=== PATIENT | male | born 1965 | race Caucasian/White ===

== ENCOUNTER 2016-09-28 06:45 | Emergency (ER) | payer MEDICARE, MEDICAID ==
[~2016-09-28 06:45] MED LIST: LISI20TA PO; OMEP20CA3 PO; TOPR25TA PO; TYLE325T5 PO; ULTR50TA PO
[2016-09-28] MEDS ORDERED: LISINOPRIL 10 MG TAB As Ordered ONE (07:24)
[2016-09-28] MEDS ORDERED: METOPROLOL SUCC *XL* 25MG TAB (TopROL *XL*) As Ordered ONE (07:25)
[2016-09-28] MEDS ORDERED: MORPHINE 4 MG/ML 1ML SYRINGE As Ordered ONE (07:25)
--- NOTE | 2016-09-28 07:59 | ECGEPIP ---
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
[2016-09-28 08:21] LABS: BASO % 0.2 % (0.0-1.0); EOS # 0.1 K/mm3 (0.0-0.50); EOS % 0.4 % (0.0-3.0); LARGE UNSTAINED CELL # 0.1 K/mm3 (0.0-0.4); LARGE UNSTAINED CELL % 0.4 % (0.0-4.0); LYMPH # 1.6 K/mm3 (1.5-4.5); LYMPH % 11.5 % (24.0-44.0); MEAN CORPUSCULAR HEMOGLOBIN 31.6 pg (27.0-33.0); MEAN CORPUSCULAR HGB CONC 33.7 g/dl (32.0-36.5); MEAN CORPUSCULAR VOLUME 93.6 fl (80.0-96.0); MONO # 0.6 K/mm3 (0.0-0.8); MONO % 4.3 % (0.0-5.0); NEUTROPHILS # 11.6 K/mm3 (1.8-7.7); NEUTROPHILS % 83.3 % (36.0-66.0); PLATELET COUNT, AUTOMATED 204 k/mm3 (150-450); RED CELL DISTRIBUTION WIDTH 12.9 % (11.5-14.5); WHITE BLOOD COUNT 13.9 K/mm3 (4.0-10.0)
[2016-09-28] MEDS ORDERED: ISOVUE-370 76% 100ML VIAL (Q9967) As Ordered ONE (08:34)
[2016-09-28 08:51] LABS: ANION GAP 8 MEQ/L (8-16); BLOOD UREA NITROGEN 17 MG/DL (7-18); CALCIUM LEVEL 8.9 MG/DL (8.5-10.1); CARBON DIOXIDE LEVEL 27 MEQ/L (21-32); CHLORIDE LEVEL 108 MEQ/L (98-107); CREATININE FOR GFR 0.71 MG/DL (0.70-1.30); GLOMERULAR FILTRATION RATE > 60.0 (>56); GLUCOSE, FASTING 106 MG/DL (70-105); POTASSIUM SERUM 3.8 MEQ/L (3.5-5.1); SODIUM LEVEL 143 MEQ/L (136-145)
--- NOTE | 2016-09-28 10:16 | REP ---
CT CHEST WITH IV CONTRAST: CT chest is performed following the intravenous administration of 100 mL of Isovue 370. Sagittal and coronal reconstruction images are performed. There are several bilateral subcentimeter nodular opacities in the lungs with 7 nodular opacities in the right upper lobe and three in the left upper lobe. A single subcentimeter nodular density is seen in each lower lobe. The heart is not enlarged. There is no evidence of thoracic aortic aneurysm or dissection or rupture. There is no adenopathy in the chest. There is no pleural or pericardial effusion. There is no pneumothorax. There are nondisplaced fractures in the posterior left 9th and 10th ribs. There is a moderate sized hiatal hernia present. The visualized upper abdominal structures are unremarkable except for a cyst in the upper pole of the left kidney measuring about 4.5 cm in diameter. IMPRESSION: Several bilateral subcentimeter nodular opacities in the lungs. Recommend 3-month followup CT. Nondisplaced fractures left 9th and 10th ribs posteriorly. No pneumothorax, pleural effusion or aortic injury. Signed by Vernon Henao MD 09/28/2016 04:55 P
--- NOTE | 2016-09-28 13:07 | EDDOCDS ---
Nurse's Notes [facility] Name: Ambrocio Dickerson Age: 51 yrs Sex: Male : 1965 Arrival Date: 09/28/2016 Time: 06:45 Bed 17 Private MD: Willem Doll MD Diagnosis: Multiple fractures of ribs, left side-Pulmonary Nodules Presentation: 09/28 06:52 Presenting complaint: Patient states: Fell Wednesday striking his left ribs on the kmg1 counter. Today got up to go to the bathroom and developed spasms. Suicide/Homicide risk assessment- the patient denies having any suicidal and/or homicidal ideations and does not present with any other emotional, behavioral or mental health complaints. Status: Patient is not a service tech/welder or dependent. Transition of care: patient was not received from another setting of care. Care prior to arrival: See EMS report. Medications administered prior to arrival: Morphine 4 mg and Zofran 4 mg IV Saline lock initiated. Care prior to arrival: Glucose check. 109. 06:52 Acuity: TANJA Level 3 [facility] 06:52 Method Of Arrival: Ambulance [facility] 13:06 Adult Sepsis Screening: The patient does not have new or worsening altered mentation. bcj Patient's respiratory rate is less than 22. Systolic blood pressure is greater than 100. Patient has a qSOFA score of 0- Negative Sepsis Screen. Triage Assessment: 07:00 General: Appears uncomfortable, Behavior is appropriate for age, cooperative, pleasant. kmg1 Pain: Location: left mid back Pain currently is 8 out of 10 on a pain scale. At worst was 10 out of 10 on a pain scale. Quality of pain is described as sharp, spasms Is intermittent. HIV screening NA for this visit Offered previously. Neurological: No deficits noted. Cardiovascular: No deficits noted. Respiratory: Airway is patent Respiratory effort is even, unlabored, Respiratory pattern is regular, symmetrical, Reports pain with cough pain with movement pain with respiration. Historical: - Allergies: No known drug Allergies; - Home Meds: 1. aspirin 81 mg Oral chew 1 tab once daily (Last dose: 09/27/2016) 2. atorvastatin 40 mg oral tab 1 tab once daily (Last dose: 09/27/2016) 3. lisinopril 10 mg Oral tab 1 tab once daily (Last dose: 09/27/2016) 4. omeprazole 20 mg Oral cpDR 1 cap once daily (Last dose: 09/27/2016) 5. metoprolol succinate 25 mg Tb24 1 tab once daily (Last dose: 09/27/2016) - PMHx: Hypertension; Hypercholesterolemia; GERD; - PSHx: Appendectomy; Knee surgery- Right; Knee surgery- Left; - Social history: Smoking status: Patient uses tobacco products, heavy tobacco smoker. No barriers to communication noted, The patient speaks fluent [place], Speaks appropriately for age. - Family history: Not pertinent. - : The pt / caregiver states he / she is not on anticoagulants. Home medication list is obtained from pill bottles. - Exposure Risk Screening:: None identified. Screenin:39 Screening information is obtained from the patient. Fall risk: No risks identified. bcj Assistance ADL's: requires no assistance with activities of daily living. Abuse/DV Screen: The patient / caregiver reports he/she is: not in a situation that causes fear, pain or injury. Nutritional screening: No deficits noted. Advance Directives: Currently, there is no health care proxy. home support is adequate. Assessment: 07:39 General: Appears uncomfortable, Behavior is cooperative. Pain: Location: left flank bcj Pain currently is 8 out of 10 on a pain scale. Neurological: Level of Consciousness is awake, alert. Cardiovascular: Rhythm is sinus rhythm. GI: Abdomen is flat, non- distended. 09:00 General: Appears comfortable, Behavior is cooperative. Pain: Location: left flank and bcj left mid back Pain currently is 6 out of 10 on a pain scale. Pain does not radiate. Derm: Skin is pink, warm & dry. 09:55 General: Appears in no apparent distress, comfortable, Behavior is cooperative. Pain: bcj Location: left flank and left mid back Pain currently is 5 out of 10 on a pain scale. Cardiovascular: Rhythm is sinus rhythm. Derm: Skin is pink, warm & dry. 11:30 General: Appears in no apparent distress, comfortable, Behavior is cooperative. Pain: bcj Location: left flank and left mid back. Cardiovascular: Rhythm is sinus rhythm. Derm: Skin is pink, warm & dry. 13:04 General: Appears in no apparent distress, comfortable, Behavior is cooperative. Pain: bcj Location: left mid back Pain currently is 5 out of 10 on a pain scale. Respiratory: Airway is patent Respiratory effort is even, unlabored, Respiratory pattern is regular, Breath sounds are clear bilaterally. Vital Signs: 06:55 BP 177 / 100 (auto/); bcj 06:57 BP 177 / 100; Pulse 75; Resp 20; Temp 98.5(TE); Pulse Ox 99% on R/A; Pain 10/10; nb2 07:09 BP 208 / 106 (auto/); bcj 07:24 BP 179 / 86 (auto/); bcj 07:28 BP 162 / 84 RA Supine (man/lg); nb2 07:39 BP 169 / 102 (auto/); bcj 07:54 BP 157 / 79 (auto/); bcj 08:09 BP 160 / 78 (auto/); bcj 08:24 BP 154 / 87 (auto/); bcj 08:31 Pulse Ox 97% ; bcj 08:39 BP 174 / 87 (auto/); bcj 08:54 BP 157 / 81 (auto/); bcj 08:54 Pulse Ox 98% ; bcj 09:09 BP 149 / 79 (auto/); bcj 09:26 BP 160 / 71 (auto/); bcj 12:23 Pulse 62 MON; Pulse Ox 99% ; srm 13:04 BP 170 / 77; Pulse 86; Resp 18; Temp 98; Pulse Ox 98% on R/A; Pain 5/10; bcj 06:57 RN notified of BP nb2 Vitals: 06:57 Log In Time N/A - ambulance arrival. nb2 07:39 Refer to monitor trend for complete vital signs trends. [facility] ED Course: 06:46 Patient visited by Melani Tan, Day Care Assistant. [facility] 06:46 Willem Doll is Private Physician. [facility] 06:46 Patient moved to 17 [facility] 06:55 Triage Initiated kmg1 06:57 Placed in gown. Bed in low position. Call light in reach. Side rails up X2. Pulse ox nb2 on. NIBP on. 06:58 Patient visited by Darcy Lion. nb2 06:58 Patient visited by Darcy Lion. nb2 07:01 Nikolai Wei MD is Attending Physician. br1 07:16 Patient visited by Nikolai Wei MD. br1 07:21 EKG done. (by ED staff). Reviewed by Nikolai Wei MD. rn1 07:28 Patient visited by Darcy Lion. nb2 07:39 No apparent distress. Resting quietly. awaiting re-evaluation by ER physician. j 07:39 The patient / caregiver is instructed regarding the plan of care and ED course. j 07:39 Maintain field IV. Site clean & dry. Gauge & site: 20ga left inner arm. Labs drawn. (by [facility] ED staff). Sent per order to lab. 07:42 Patient visited by Tevin Lopez RN. bcj 07:43 Basic Metabolic Profile Sent. bcj 07:43 CBC with Diff Sent. bcj 07:43 Cardiac Injury Profile Sent. bcj 07:43 Troponin Sent. bcj 08:11 EKG-ADULT Returned. EDMS 08:18 [facility] Payment Agreement was scanned into [employer] and attached to record. lg 09:02 Patient visited by Tevin Lopez RN. bcj 09:09 No apparent distress. Resting quietly. awaiting re-evaluation by ER physician. bcj 09:09 IV is intact. bcj 09:56 Patient visited by Tevin Lopez RN. bcj 10:33 CT Chest With Contrast Returned. EDMS 11:27 Patient visited by Darcy Lion. nb2 11:30 No apparent distress. Resting quietly. Awaiting disposition. bcj 11:30 IV is intact. bcj 11:31 Patient visited by Tevin Lopez RN. bcj 12:08 Patient visited by Tevin Lopez RN. bcj 12:18 Patient visited by Nikolai Wei MD. br1 12:23 Willem Doll is Referral Physician. br1 12:23 Ciera Doll RPA-C is Referral Physician. br1 13:04 No apparent distress. Resting quietly. Awaiting disposition. bcj 13:04 Discontinued lock intact. No procedures done that require assistance. [facility] Administered Medications: 07:42 Drug: meTOPROLOL 25 mg [metoprolol succinate ER 25 mg tablet,extended release 24 hr (1 [facility] tabs)] Route: PO; 07:43 Drug: morphine 4 mg [morphine 4 mg/mL intravenous cartridge (1 mL)] Route: IVP; Site: [facility] left antecubital; 09:02 Follow up: Response: Pain is decreased [facility] 07:43 Drug: Lisinopril 10 mg [lisinopril 10 mg tablet (1 tabs)] Route: PO; [facility] Output: 10:53 Urine: 900.00ml (Voided); Total: 900.00ml. [facility] RT: 12:31 Incentive Spirometry performed: 5 inspirations. Volume of inspiration: 2000 mls. js11 Patient tolerated well Patient Effort good. Order Results: Lab Order: Basic Metabolic Profile; SPEC'M 09/28/16 07:37 Test: GLUCOSE, FASTING; Value: 106; Range: 70-105; Abnormal: Above high normal; Units: MG/DL; Status: F Test: BLOOD UREA NITROGEN; Value: 17; Range: 7-18; Units: MG/DL; Status: F Test: CREATININE FOR GFR; Value: 0.71; Range: 0.70-1.30; Units: MG/DL; Status: F Test: GLOMERULAR FILTRATION RATE; Value: > 60.0; Range: >56; Status: F Test: SODIUM LEVEL; Value: 143; Range: 136-145; Units: MEQ/L; Status: F Test: POTASSIUM SERUM; Value: 3.8; Range: 3.5-5.1; Units: MEQ/L; Status: F Test: CHLORIDE LEVEL; Value: 108; Range: 98-107; Abnormal: Above high normal; Units: MEQ/L; Status: F Test: CARBON DIOXIDE LEVEL; Value: 27; Range: 21-32; Units: MEQ/L; Status: F Test: ANION GAP; Value: 8; Range: 8-16; Units: MEQ/L; Status: F Test: CALCIUM LEVEL; Value: 8.9; Range: 8.5-10.1; Units: MG/DL; Status: F Test Note: ; Units are mL/min/1.73 m2 Chronic Kidney Disease Staging per NKF: Stage I & II GFR >=60 Normal to Mildly Decreased Stage III GFR 30-59 Moderately Decreased Stage IV GFR 15-29 Severely Decreased Stage V GFR <15 Very Little GFR Left ESRD GFR <15 on ROTATIONAL MOULDING OPERATOR Lab Order: CBC with Diff; SPEC'M 09/28/16 07:37 Test: WHITE BLOOD COUNT; Value: 13.9; Range: 4.0-10.0; Abnormal: Above high normal; Units: K/mm3; Status: F Test: RED BLOOD COUNT; Value: 4.48; Range: 4.30-6.10; Units: M/mm3; Status: F Test: HEMOGLOBIN; Value: 14.2; Range: 14.0-18.0; Units: g/dl; Status: F Test: HEMATOCRIT; Value: 42.0; Range: 42.0-52.0; Units: %; Status: F Test: MEAN CORPUSCULAR VOLUME; Value: 93.6; Range: 80.0-96.0; Units: fl; Status: F Test: MEAN CORPUSCULAR HEMOGLOBIN; Value: 31.6; Range: 27.0-33.0; Units: pg; Status: F Test: MEAN CORPUSCULAR HGB CONC; Value: 33.7; Range: 32.0-36.5; Units: g/dl; Status: F Test: RED CELL DISTRIBUTION WIDTH; Value: 12.9; Range: 11.5-14.5; Units: %; Status: F Test: PLATELET COUNT, AUTOMATED; Value: 204; Range: 150-450; Units: k/mm3; Status: F Test: NEUTROPHILS %; Value: 83.3; Range: 36.0-66.0; Abnormal: Above high normal; Units: %; Status: F Test: LYMPH %; Value: 11.5; Range: 24.0-44.0; Abnormal: Below low normal; Units: %; Status: F Test: MONO %; Value: 4.3; Range: 0.0-5.0; Units: %; Status: F Test: EOS %; Value: 0.4; Range: 0.0-3.0; Units: %; Status: F Test: BASO %; Value: 0.2; Range: 0.0-1.0; Units: %; Status: F Test: LARGE UNSTAINED CELL %; Value: 0.4; Range: 0.0-4.0; Units: %; Status: F Test: NEUTROPHILS #; Value: 11.6; Range: 1.8-7.7; Abnormal: Above high normal; Units: K/mm3; Status: F Test: LYMPH #; Value: 1.6; Range: 1.5-4.5; Units: K/mm3; Status: F Test: MONO #; Value: 0.6; Range: 0.0-0.8; Units: K/mm3; Status: F Test: EOS #; Value: 0.1; Range: 0.0-0.50; Units: K/mm3; Status: F Test: BASO #; Value: 0.0; Range: 0.0-0.2; Units: K/mm3; Status: F Test: LARGE UNSTAINED CELL #; Value: 0.1; Range: 0.0-0.4; Units: K/mm3; Status: F Lab Order: Cardiac Injury Profile; SPEC'M 09/28/16 07:37 Test: CPK CREATINE PHOSPHOKINASE; Value: 67; Range: 39-308; Units: U/L; Status: F Test: CK-MB VALUE MASS; Value: 1.0; Range: 0.0-3.6; Units: NG/ML; Status: F Test: MB/CK RELATIVE INDEX; Value: 1.49; Range: < OR =4; Status: F Test Note: ; DIAGNOSIS CRITERIA MMB ng/ml Relative Index (RI) NON-AMI < or = 5 N/A VUONG ZONE > 5 < or = 4 AMI > 5 > 4 Lab Order: Troponin; SPEC'M 09/28/16 07:37 Test: TROPONIN I; Value: < 0.02; Range: < 0.10; Units: NG/ML; Status: F Test Note: ; Troponin I Reference Interval for [employer] LOCI: 99th Percentile= 0.00-0.045 ng/ml Risk Stratification: <= 0.10 ng/ml Decreased Risk for Adverse Clinical Events. 0.10-1.50 ng/ml Increased Risk for Adverse Clinical Events. Evaluation of additional criterion and/or repeat testing in 2-6 hours is suggested to rule out myocardial damage. >= 1.50 ng/ml Indicative of Myocardial Injury. 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 Sagittal and coronal reconstruction images are performed.; ; There are several bilateral subcentimeter nodular opacities in the lungs with 7; nodular opacities in the right upper lobe and three in the left upper lobe. A; single subcentimeter nodular density is seen in each lower lobe. The heart is not; enlarged. There is no evidence of thoracic aortic aneurysm or dissection or; rupture. There is no adenopathy in the chest. There is no pleural or; pericardial effusion. There is no pneumothorax. There are nondisplaced fractures; in the posterior left 9th and 10th ribs. There is a moderate sized hiatal hernia; present. The visualized upper abdominal structures are unremarkable except for a; cyst in the upper pole of the left kidney measuring about 4.5 cm in diameter.; ; IMPRESSION:; Several bilateral subcentimeter nodular opacities in the lungs. Recommend; 3-month followup CT.; ; Nondisplaced fractures left 9th and 10th ribs posteriorly. No pneumothorax,; pleural effusion or aortic injury.; ; ; ; Unreviewed; Outcome: 12:23 Discharge ordered by Provider. br1 13:04 Discharge Assessment: patient administered narcotics - yes. Pt provided with safe j discharge. The following High Risk Discharge criteria are identified: None. Discharged to home ambulatory, with family. Condition: stable. Discharge instructions given to patient, Instructed on discharge instructions, follow up and referral plans. medication usage, Prescriptions given X 1. CT Study completed. Property :Personal belongings accompany Pt. 13:06 Patient left the ED. [facility] Signatures: Dispatcher [facility] Oralia Solorio, RN RN kmTevin Teixeira, RN RN Arina Smith RN RN srm Bob Haprer, Reg Reg lg Nikolai Wei MD MD br1 Marvin Vasquez js11 Melani Tan, Day Care Assistant Unit Jose Ramirez rn1 Darcy Lion nb2 Corrections: (The following items were deleted from the chart) 06:58 06:57 BP 177 / 100; Pulse 75bpm; Resp 20bpm; Pulse Ox 99% RA; Temp 98.5F Temporal; Pain nb2 05/11; nb2 MTDD
--- NOTE | 2016-09-28 13:07 | EDDOCDS ---
Physician Documentation [facility] Name: Ambrocio Dickerson Age: 51 yrs Sex: Male : 1965 Arrival Date: 09/28/2016 Time: 06:45 Bed 17 Private MD: Willem Doll MD Disposition: 09/28/16 12:23 Discharged to Home/Self Care. Impression: Multiple fractures of ribs, left side - Pulmonary Nodules. - Condition is Stable. - Discharge Instructions: Rib Fracture, Pulmonary Nodule. - Prescriptions for Percocet 5- 325 mg Oral Tablet - take 1 tablet by ORAL route every 6 hours As needed MDD: 4 tabs; 20 tablet. - Medication Reconciliation, Local Pharmacy Hours form. - Follow up: Willem Doll; When: 2 - 3 days; Reason: Recheck today's complaints. Follow up: Ciera Doll RPA-C; When: 2 - 3 days; Reason: Recheck today's complaints. - Problem is new. - Symptoms have improved. - Notes: You were seen in the ED for left rib pain after a fall. Bloodwork showed no acute findings. CT scan of the chest showed fractures of the left 9th and 10th ribs, nondisplaced. It also showed nodules in the lungs that will need further evaluation with your primary doctor this week and possible repeat CT scan. Please call your primary provider to discuss this and arrange to be seen this week. Rest. You may take Ibuprofen as needed for pain and may take Percocet as needed for breakthrough pain (no driving or operating machinery while on this medicine). Use the incentive spirometer several times daily to prevent a developing pneumonia. Return to the ED for any worsening or uncontrolled pain, shortness of breath, fever, new pain, or any other concerns. Historical: - Allergies: No known drug Allergies; - Home Meds: 1. aspirin 81 mg Oral chew 1 tab once daily (Last dose: 09/27/2016) 2. atorvastatin 40 mg oral tab 1 tab once daily (Last dose: 09/27/2016) 3. lisinopril 10 mg Oral tab 1 tab once daily (Last dose: 09/27/2016) 4. omeprazole 20 mg Oral cpDR 1 cap once daily (Last dose: 09/27/2016) 5. metoprolol succinate 25 mg Tb24 1 tab once daily (Last dose: 09/27/2016) - PMHx: Hypertension; Hypercholesterolemia; GERD; - PSHx: Appendectomy; Knee surgery- Right; Knee surgery- Left; - Social history: Smoking status: Patient uses tobacco products, heavy tobacco smoker. No barriers to communication noted, The patient speaks fluent [place], Speaks appropriately for age. - Family history: Not pertinent. - : The pt / caregiver states he / she is not on anticoagulants. Home medication list is obtained from pill bottles. - Exposure Risk Screening:: None identified. Vital Signs: 09/28 06:55 BP 177 / 100 (auto/); bcj 06:57 BP 177 / 100; Pulse 75; Resp 20; Temp 98.5(TE); Pulse Ox 99% on R/A; Pain 10/10; nb2 07:09 BP 208 / 106 (auto/); bcj 07:24 BP 179 / 86 (auto/); bcj 07:28 BP 162 / 84 RA Supine (man/lg); nb2 07:39 BP 169 / 102 (auto/); bcj 07:54 BP 157 / 79 (auto/); bcj 08:09 BP 160 / 78 (auto/); bcj 08:24 BP 154 / 87 (auto/); bcj 08:31 Pulse Ox 97% ; bcj 08:39 BP 174 / 87 (auto/); bcj 08:54 BP 157 / 81 (auto/); bcj 08:54 Pulse Ox 98% ; bcj 09:09 BP 149 / 79 (auto/); bcj 09:26 BP 160 / 71 (auto/); bcj 12:23 Pulse 62 MON; Pulse Ox 99% ; srm 13:04 BP 170 / 77; Pulse 86; Resp 18; Temp 98; Pulse Ox 98% on R/A; Pain 5/10; bcj 06:57 RN notified of BP nb2 MDM: 07:05 IV Saline Lock ordered. br1 07:05 Clinical Haematologist/Pulse Ox/q 30 min VS ordered. br1 07:05 Rhythm Strip to chart ordered. br1 07:05 Undress patient appropriately for examination ordered. br1 07:05 Misc. Nursing Order ordered. br1 07:06 Basic Metabolic Profile Ordered. EDMS 07:06 CBC with Diff Ordered. EDMS 07:06 Cardiac Injury Profile Ordered. EDMS 07:06 Troponin Ordered. EDMS 07:07 ECG WITH READING ER PHYS+CARDIAG ordered. EDMS 07:20 morphine 4 mg IVP once ordered. br1 07:21 Lisinopril 10 mg PO once ordered. br1 07:21 meTOPROLOL Extended Release 24 hour Tablet (Succinate) 25 mg PO once ordered. br1 07:23 CT Chest With Contrast Ordered. EDMS 07:55 Financial registration complete. lg 08:18 [facility] Payment Agreement was scanned into [employer] and attached to record. lg 08:39 CBC with Diff Reviewed. br1 08:39 EKG-ADULT Reviewed. br1 09:49 Basic Metabolic Profile Reviewed. br1 09:49 Cardiac Injury Profile Reviewed. br1 09:49 Troponin Reviewed. br1 12:18 Call Respiratory ordered. br1 12:18 -Incentive Spirometer ordered. br1 12:21 Call Respiratory complete. deg Administered Medications: 07:42 Drug: meTOPROLOL 25 mg [metoprolol succinate ER 25 mg tablet,extended release 24 hr (1 bcj tabs)] Route: PO; 07:43 Drug: morphine 4 mg [morphine 4 mg/mL intravenous cartridge (1 mL)] Route: IVP; Site: [facility] left antecubital; 09:02 Follow up: Response: Pain is decreased [facility] 07:43 Drug: Lisinopril 10 mg [lisinopril 10 mg tablet (1 tabs)] Route: PO; [facility] Signatures: Dispatcher [employer] EDNery Bynum, Electric Sealing Machine Operator Unit deg Oralia Solorio RN RN km Tevin Lopez RN RN [facility] Bob Harper, Reg Reg lg Cory Wei MD MD br1 The chart was reviewed and I authenticate all verbal orders and agree with the evaluation and treatment provided.Attachments: 08:18 [facility] Payment Agreement lg MTDD
--- NOTE | 2016-09-30 14:08 | EDDOCDS ---
Physician Documentation [facility] Name: Ambrocio Dickerson Age: 51 yrs Sex: Male : 1965 Arrival Date: 09/28/2016 Time: 06:45 Bed 17 Private MD: Willem Doll MD Disposition: 09/28/16 12:23 Discharged to Home/Self Care. Impression: Multiple fractures of ribs, left side - Pulmonary Nodules. - Condition is Stable. - Discharge Instructions: Rib Fracture, Pulmonary Nodule. - Prescriptions for Percocet 5- 325 mg Oral Tablet - take 1 tablet by ORAL route every 6 hours As needed MDD: 4 tabs; 20 tablet. - Medication Reconciliation, Local Pharmacy Hours form. - Follow up: Willem Doll; When: 2 - 3 days; Reason: Recheck today's complaints. Follow up: Ciera Doll RPA-C; When: 2 - 3 days; Reason: Recheck today's complaints. - Problem is new. - Symptoms have improved. - Notes: You were seen in the ED for left rib pain after a fall. Bloodwork showed no acute findings. CT scan of the chest showed fractures of the left 9th and 10th ribs, nondisplaced. It also showed nodules in the lungs that will need further evaluation with your primary doctor this week and possible repeat CT scan. Please call your primary provider to discuss this and arrange to be seen this week. Rest. You may take Ibuprofen as needed for pain and may take Percocet as needed for breakthrough pain (no driving or operating machinery while on this medicine). Use the incentive spirometer several times daily to prevent a developing pneumonia. Return to the ED for any worsening or uncontrolled pain, shortness of breath, fever, new pain, or any other concerns. Historical: - Allergies: No known drug Allergies; - Home Meds: 1. aspirin 81 mg Oral chew 1 tab once daily (Last dose: 09/27/2016) 2. atorvastatin 40 mg oral tab 1 tab once daily (Last dose: 09/27/2016) 3. lisinopril 10 mg Oral tab 1 tab once daily (Last dose: 09/27/2016) 4. omeprazole 20 mg Oral cpDR 1 cap once daily (Last dose: 09/27/2016) 5. metoprolol succinate 25 mg Tb24 1 tab once daily (Last dose: 09/27/2016) - PMHx: Hypertension; Hypercholesterolemia; GERD; - PSHx: Appendectomy; Knee surgery- Right; Knee surgery- Left; - Social history: Smoking status: Patient uses tobacco products, heavy tobacco smoker. No barriers to communication noted, The patient speaks fluent Bangladeshi, Speaks appropriately for age. - Family history: Not pertinent. - : The pt / caregiver states he / she is not on anticoagulants. Home medication list is obtained from pill bottles. - Exposure Risk Screening:: None identified. Vital Signs: 09/28 06:55 BP 177 / 100 (auto/); bcj 06:57 BP 177 / 100; Pulse 75; Resp 20; Temp 98.5(TE); Pulse Ox 99% on R/A; Pain 10/10; nb2 07:09 BP 208 / 106 (auto/); bcj 07:24 BP 179 / 86 (auto/); bcj 07:28 BP 162 / 84 RA Supine (man/lg); nb2 07:39 BP 169 / 102 (auto/); bcj 07:54 BP 157 / 79 (auto/); bcj 08:09 BP 160 / 78 (auto/); bcj 08:24 BP 154 / 87 (auto/); bcj 08:31 Pulse Ox 97% ; bcj 08:39 BP 174 / 87 (auto/); bcj 08:54 BP 157 / 81 (auto/); bcj 08:54 Pulse Ox 98% ; bcj 09:09 BP 149 / 79 (auto/); bcj 09:26 BP 160 / 71 (auto/); bcj 12:23 Pulse 62 MON; Pulse Ox 99% ; srm 13:04 BP 170 / 77; Pulse 86; Resp 18; Temp 98; Pulse Ox 98% on R/A; Pain 5/10; bcj 06:57 RN notified of BP nb2 MDM: 07:05 IV Saline Lock ordered. br1 07:05 Assistant Attorney General/Pulse Ox/q 30 min VS ordered. br1 07:05 Rhythm Strip to chart ordered. br1 07:05 Undress patient appropriately for examination ordered. br1 07:05 Misc. Nursing Order ordered. br1 07:06 Basic Metabolic Profile Ordered. EDMS 07:06 CBC with Diff Ordered. EDMS 07:06 Cardiac Injury Profile Ordered. EDMS 07:06 Troponin Ordered. EDMS 07:07 ECG WITH READING ER PHYS+CARDIAG ordered. EDMS 07:20 morphine 4 mg IVP once ordered. br1 07:21 Lisinopril 10 mg PO once ordered. br1 07:21 meTOPROLOL Extended Release 24 hour Tablet (Succinate) 25 mg PO once ordered. br1 07:23 CT Chest With Contrast Ordered. EDMS 07:55 Financial registration complete. lg 08:18 [facility] Payment Agreement was scanned into [employer] and attached to record. lg 08:39 CBC with Diff Reviewed. br1 08:39 EKG-ADULT Reviewed. br1 09:49 Basic Metabolic Profile Reviewed. br1 09:49 Cardiac Injury Profile Reviewed. br1 09:49 Troponin Reviewed. br1 12:18 Call Respiratory ordered. br1 12:18 -Incentive Spirometer ordered. br1 12:21 Call Respiratory complete. deg 09/30 07:08 ED course: dr bansal faxed formal report of ct chest for fu mlg. ml Administered Medications: 09/28 07:42 Drug: meTOPROLOL 25 mg [metoprolol succinate ER 25 mg tablet,extended release 24 hr (1 bcj tabs)] Route: PO; 07:43 Drug: morphine 4 mg [morphine 4 mg/mL intravenous cartridge (1 mL)] Route: IVP; Site: [facility] left antecubital; 09:02 Follow up: Response: Pain is decreased [facility] 07:43 Drug: Lisinopril 10 mg [lisinopril 10 mg tablet (1 tabs)] Route: PO; [facility] Signatures: Dispatcher [employer] EDLA Hilary Pantoja MD MD ml Murray, Denise, Automation Test Engineer Unit deg Oralia Solorio, LEIGHA RN kmg1 Tevin Lopez RN RN bcBob Alford, Reg Reg lg Cory Wei MD MD br1 The chart was reviewed and I authenticate all verbal orders and agree with the evaluation and treatment provided.Attachments: 08:18 [facility] Payment Agreement lg Chart Complete MTDD
--- NOTE | 2016-09-30 14:08 | EDDOCDS ---
Nurse's Notes [facility] Name: Ambrocio Dickerson Age: 51 yrs Sex: Male : 1965 Arrival Date: 09/28/2016 Time: 06:45 Bed 17 Private MD: Willem Doll MD Diagnosis: Multiple fractures of ribs, left side-Pulmonary Nodules Presentation: 09/28 06:52 Presenting complaint: Patient states: Fell Wednesday striking his left ribs on the kmg1 counter. Today got up to go to the bathroom and developed spasms. Suicide/Homicide risk assessment- the patient denies having any suicidal and/or homicidal ideations and does not present with any other emotional, behavioral or mental health complaints. Status: Patient is not a service car operator or dependent. Transition of care: patient was not received from another setting of care. Care prior to arrival: See EMS report. Medications administered prior to arrival: Morphine 4 mg and Zofran 4 mg IV Saline lock initiated. Care prior to arrival: Glucose check. 109. 06:52 Acuity: [place] Level 3 [facility] [place] 06:[place] Method Of Arrival: [place] [facility] [place]:06 Adult Sepsis Screening: The patient does not have new or worsening altered mentation. bcj Patient's respiratory rate is less than 22. Systolic blood pressure is greater than 100. Patient has a qSOFA score of 0- Negative Sepsis Screen. Triage Assessment: 07:00 General: Appears uncomfortable, Behavior is appropriate for age, cooperative, pleasant. kmg1 Pain: Location: left mid back Pain currently is 8 out of 10 on a pain scale. At worst was 10 out of 10 on a pain scale. Quality of pain is described as sharp, spasms Is intermittent. HIV screening NA for this visit Offered previously. Neurological: No deficits noted. Cardiovascular: No deficits noted. Respiratory: Airway is patent Respiratory effort is even, unlabored, Respiratory pattern is regular, symmetrical, Reports pain with cough pain with movement pain with respiration. Historical: - Allergies: No known drug Allergies; - Home Meds: 1. aspirin 81 mg Oral chew 1 tab once daily (Last dose: 09/27/2016) 2. atorvastatin 40 mg oral tab 1 tab once daily (Last dose: 09/27/2016) 3. lisinopril 10 mg Oral tab 1 tab once daily (Last dose: 09/27/2016) 4. omeprazole 20 mg Oral cpDR 1 cap once daily (Last dose: 09/27/2016) 5. metoprolol succinate 25 mg Tb24 1 tab once daily (Last dose: 09/27/2016) - PMHx: Hypertension; Hypercholesterolemia; GERD; - PSHx: Appendectomy; Knee surgery- Right; Knee surgery- Left; - Social history: Smoking status: Patient uses tobacco products, heavy tobacco smoker. No barriers to communication noted, The patient speaks fluent Colombian, Speaks appropriately for age. - Family history: Not pertinent. - : The pt / caregiver states he / she is not on anticoagulants. Home medication list is obtained from pill bottles. - Exposure Risk Screening:: None identified. Screenin:39 Screening information is obtained from the patient. Fall risk: No risks identified. bcj Assistance ADL's: requires no assistance with activities of daily living. Abuse/DV Screen: The patient / caregiver reports he/she is: not in a situation that causes fear, pain or injury. Nutritional screening: No deficits noted. Advance Directives: Currently, there is no health care proxy. home support is adequate. Assessment: 07:39 General: Appears uncomfortable, Behavior is cooperative. Pain: Location: left flank bcj Pain currently is 8 out of 10 on a pain scale. Neurological: Level of Consciousness is awake, alert. Cardiovascular: Rhythm is sinus rhythm. GI: Abdomen is flat, non- distended. 09:00 General: Appears comfortable, Behavior is cooperative. Pain: Location: left flank and bcj left mid back Pain currently is 6 out of 10 on a pain scale. Pain does not radiate. Derm: Skin is pink, warm & dry. 09:55 General: Appears in no apparent distress, comfortable, Behavior is cooperative. Pain: bcj Location: left flank and left mid back Pain currently is 5 out of 10 on a pain scale. Cardiovascular: Rhythm is sinus rhythm. Derm: Skin is pink, warm & dry. 11:30 General: Appears in no apparent distress, comfortable, Behavior is cooperative. Pain: bcj Location: left flank and left mid back. Cardiovascular: Rhythm is sinus rhythm. Derm: Skin is pink, warm & dry. 13:04 General: Appears in no apparent distress, comfortable, Behavior is cooperative. Pain: bcj Location: left mid back Pain currently is 5 out of 10 on a pain scale. Respiratory: Airway is patent Respiratory effort is even, unlabored, Respiratory pattern is regular, Breath sounds are clear bilaterally. Vital Signs: 06:55 BP 177 / 100 (auto/); bcj 06:57 BP 177 / 100; Pulse 75; Resp 20; Temp 98.5(TE); Pulse Ox 99% on R/A; Pain 10/10; nb2 07:09 BP 208 / 106 (auto/); bcj 07:24 BP 179 / 86 (auto/); bcj 07:28 BP 162 / 84 RA Supine (man/lg); nb2 07:39 BP 169 / 102 (auto/); bcj 07:54 BP 157 / 79 (auto/); bcj 08:09 BP 160 / 78 (auto/); bcj 08:24 BP 154 / 87 (auto/); bcj 08:31 Pulse Ox 97% ; bcj 08:39 BP 174 / 87 (auto/); bcj 08:54 BP 157 / 81 (auto/); bcj 08:54 Pulse Ox 98% ; bcj 09:09 BP 149 / 79 (auto/); bcj 09:26 BP 160 / 71 (auto/); bcj 12:23 Pulse 62 MON; Pulse Ox 99% ; srm 13:04 BP 170 / 77; Pulse 86; Resp 18; Temp 98; Pulse Ox 98% on R/A; Pain 5/10; bcj 06:57 RN notified of BP nb2 Vitals: 06:57 Log In Time N/A - ambulance arrival. nb2 07:39 Refer to monitor trend for complete vital signs trends. [facility] ED Course: 06:46 Patient visited by Melani Tan, Supervisor Loading. [facility] 06:46 Willem Doll is Private Physician. [facility] 06:46 Patient moved to 17 [facility] 06:55 Triage Initiated kmg1 06:57 Placed in gown. Bed in low position. Call light in reach. Side rails up X2. Pulse ox nb2 on. NIBP on. 06:58 Patient visited by Darcy Lion. nb2 06:58 Patient visited by Darcy Lion. nb2 07:01 Nikolai Wei MD is Attending Physician. br1 07:16 Patient visited by Nikolai Wei MD. br1 07:21 EKG done. (by ED staff). Reviewed by Nikolai Wei MD. rn1 07:28 Patient visited by Darcy Lion. nb2 07:39 No apparent distress. Resting quietly. awaiting re-evaluation by ER physician. j 07:39 The patient / caregiver is instructed regarding the plan of care and ED course. j 07:39 Maintain field IV. Site clean & dry. Gauge & site: 20ga left inner arm. Labs drawn. (by [facility] ED staff). Sent per order to lab. 07:42 Patient visited by Tevin Lopez RN. bcj 07:43 Basic Metabolic Profile Sent. bcj 07:43 CBC with Diff Sent. bcj 07:43 Cardiac Injury Profile Sent. bcj 07:43 Troponin Sent. bcj 08:11 EKG-ADULT Returned. EDMS 08:18 [facility] Payment Agreement was scanned into [employer] and attached to record. lg 09:02 Patient visited by Tevin Lopez RN. bcj 09:09 No apparent distress. Resting quietly. awaiting re-evaluation by ER physician. bcj 09:09 IV is intact. bcj 09:56 Patient visited by Tevin Lopez RN. bcj 10:33 CT Chest With Contrast Returned. EDMS 11:27 Patient visited by Darcy Lion. nb2 11:30 No apparent distress. Resting quietly. Awaiting disposition. bcj 11:30 IV is intact. bcj 11:31 Patient visited by Tevin Lopez RN. bcj 12:08 Patient visited by Tevin Lopez RN. bcj 12:18 Patient visited by Nikolai Wei MD. br1 12:23 Willem Doll is Referral Physician. br1 12:23 Ciera Doll RPA-C is Referral Physician. br1 13:04 No apparent distress. Resting quietly. Awaiting disposition. bcj 13:04 Discontinued lock intact. No procedures done that require assistance. [facility] Administered Medications: 07:42 Drug: meTOPROLOL 25 mg [metoprolol succinate ER 25 mg tablet,extended release 24 hr (1 [facility] tabs)] Route: PO; 07:43 Drug: morphine 4 mg [morphine 4 mg/mL intravenous cartridge (1 mL)] Route: IVP; Site: [facility] left antecubital; 09:02 Follow up: Response: Pain is decreased [facility] 07:43 Drug: Lisinopril 10 mg [lisinopril 10 mg tablet (1 tabs)] Route: PO; [facility] Output: 10:53 Urine: 900.00ml (Voided); Total: 900.00ml. [facility] RT: 12:31 Incentive Spirometry performed: 5 inspirations. Volume of inspiration: 2000 mls. js11 Patient tolerated well Patient Effort good. Order Results: Lab Order: Basic Metabolic Profile; SPEC'M 09/28/16 07:37 Test: GLUCOSE, FASTING; Value: 106; Range: 70-105; Abnormal: Above high normal; Units: MG/DL; Status: F Test: BLOOD UREA NITROGEN; Value: 17; Range: 7-18; Units: MG/DL; Status: F Test: CREATININE FOR GFR; Value: 0.71; Range: 0.70-1.30; Units: MG/DL; Status: F Test: GLOMERULAR FILTRATION RATE; Value: > 60.0; Range: >56; Status: F Test: SODIUM LEVEL; Value: 143; Range: 136-145; Units: MEQ/L; Status: F Test: POTASSIUM SERUM; Value: 3.8; Range: 3.5-5.1; Units: MEQ/L; Status: F Test: CHLORIDE LEVEL; Value: 108; Range: 98-107; Abnormal: Above high normal; Units: MEQ/L; Status: F Test: CARBON DIOXIDE LEVEL; Value: 27; Range: 21-32; Units: MEQ/L; Status: F Test: ANION GAP; Value: 8; Range: 8-16; Units: MEQ/L; Status: F Test: CALCIUM LEVEL; Value: 8.9; Range: 8.5-10.1; Units: MG/DL; Status: F Test Note: ; Units are mL/min/1.73 m2 Chronic Kidney Disease Staging per NKF: Stage I & II GFR >=60 Normal to Mildly Decreased Stage III GFR 30-59 Moderately Decreased Stage IV GFR 15-29 Severely Decreased Stage V GFR <15 Very Little GFR Left ESRD GFR <15 on PRESCHOOL ASSISTANT Lab Order: CBC with Diff; SPEC'M 09/28/16 07:37 Test: WHITE BLOOD COUNT; Value: 13.9; Range: 4.0-10.0; Abnormal: Above high normal; Units: K/mm3; Status: F Test: RED BLOOD COUNT; Value: 4.48; Range: 4.30-6.10; Units: M/mm3; Status: F Test: HEMOGLOBIN; Value: 14.2; Range: 14.0-18.0; Units: g/dl; Status: F Test: HEMATOCRIT; Value: 42.0; Range: 42.0-52.0; Units: %; Status: F Test: MEAN CORPUSCULAR VOLUME; Value: 93.6; Range: 80.0-96.0; Units: fl; Status: F Test: MEAN CORPUSCULAR HEMOGLOBIN; Value: 31.6; Range: 27.0-33.0; Units: pg; Status: F Test: MEAN CORPUSCULAR HGB CONC; Value: 33.7; Range: 32.0-36.5; Units: g/dl; Status: F Test: RED CELL DISTRIBUTION WIDTH; Value: 12.9; Range: 11.5-14.5; Units: %; Status: F Test: PLATELET COUNT, AUTOMATED; Value: 204; Range: 150-450; Units: k/mm3; Status: F Test: NEUTROPHILS %; Value: 83.3; Range: 36.0-66.0; Abnormal: Above high normal; Units: %; Status: F Test: LYMPH %; Value: 11.5; Range: 24.0-44.0; Abnormal: Below low normal; Units: %; Status: F Test: MONO %; Value: 4.3; Range: 0.0-5.0; Units: %; Status: F Test: EOS %; Value: 0.4; Range: 0.0-3.0; Units: %; Status: F Test: BASO %; Value: 0.2; Range: 0.0-1.0; Units: %; Status: F Test: LARGE UNSTAINED CELL %; Value: 0.4; Range: 0.0-4.0; Units: %; Status: F Test: NEUTROPHILS #; Value: 11.6; Range: 1.8-7.7; Abnormal: Above high normal; Units: K/mm3; Status: F Test: LYMPH #; Value: 1.6; Range: 1.5-4.5; Units: K/mm3; Status: F Test: MONO #; Value: 0.6; Range: 0.0-0.8; Units: K/mm3; Status: F Test: EOS #; Value: 0.1; Range: 0.0-0.50; Units: K/mm3; Status: F Test: BASO #; Value: 0.0; Range: 0.0-0.2; Units: K/mm3; Status: F Test: LARGE UNSTAINED CELL #; Value: 0.1; Range: 0.0-0.4; Units: K/mm3; Status: F Lab Order: Cardiac Injury Profile; SPEC'M 09/28/16 07:37 Test: CPK CREATINE PHOSPHOKINASE; Value: 67; Range: 39-308; Units: U/L; Status: F Test: CK-MB VALUE MASS; Value: 1.0; Range: 0.0-3.6; Units: NG/ML; Status: F Test: MB/CK RELATIVE INDEX; Value: 1.49; Range: < OR =4; Status: F Test Note: ; DIAGNOSIS CRITERIA MMB ng/ml Relative Index (RI) NON-AMI < or = 5 N/A HE[place] ZONE > 5 < or = 4 AMI > 5 > 4 Lab Order: Troponin; SPEC'M 09/28/16 07:37 Test: TROPONIN I; Value: < 0.02; Range: < 0.10; Units: NG/ML; Status: F Test Note: ; Troponin I Reference Interval for Red's All natural LOCI: 99th Percentile= 0.00-0.045 ng/ml Risk Stratification: <= 0.10 ng/ml Decreased Risk for Adverse Clinical Events. 0.10-1.50 ng/ml Increased Risk for Adverse Clinical Events. Evaluation of additional criterion and/or repeat testing in 2-6 hours is suggested to rule out myocardial damage. >= 1.50 ng/ml Indicative of Myocardial Injury. 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 Sagittal and coronal reconstruction images are performed.; ; There are several bilateral subcentimeter nodular opacities in the lungs with 7; nodular opacities in the right upper lobe and three in the left upper lobe. A; single subcentimeter nodular density is seen in each lower lobe. The heart is not; enlarged. There is no evidence of thoracic aortic aneurysm or dissection or; rupture. There is no adenopathy in the chest. There is no pleural or; pericardial effusion. There is no pneumothorax. There are nondisplaced fractures; in the posterior left 9th and 10th ribs. There is a moderate sized hiatal hernia; present. The visualized upper abdominal structures are unremarkable except for a; cyst in the upper pole of the left kidney measuring about 4.5 cm in diameter.; ; IMPRESSION:; ; Several bilateral subcentimeter nodular opacities in the lungs. Recommend; 3-month followup CT.; ; Nondisplaced fractures left 9th and 10th ribs posteriorly. No pneumothorax,; pleural effusion or aortic injury.; ; ; Signed by; Vernon Henao MD 09/28/2016 04:55 P; Outcome: 12:23 Discharge ordered by Provider. br1 13:04 Discharge Assessment: patient administered narcotics - yes. Pt provided with safe bcj discharge. The following High Risk Discharge criteria are identified: None. Discharged to home ambulatory, with family. Condition: stable. Discharge instructions given to patient, Instructed on discharge instructions, follow up and referral plans. medication usage, Prescriptions given X 1. CT Study completed. Property :Personal belongings accompany Pt. 13:06 Patient left the ED. bcj Signatures: Dispatcher [employer] EDMS Oralia Solorio RN RN kmg1 Tevin Lopez, LEIGHA RN bcj Arina Silva, RN RN srm Bob Harper, Reg Reg lg Nikolai Wei MD MD br1 Marvin Vasquez js11 Melani Tan, Supervisor Loading Unit car[employer]em Jose Hawkins rn1 Darcy Lion nb2 Corrections: (The following items were deleted from the chart) 06:58 06:57 BP 177 / 100; Pulse 75bpm; Resp 20bpm; Pulse Ox 99% RA; Temp 98.5F Temporal; Pain nb2 05/11; nb2 Chart Complete MTDD
--- NOTE | 2016-09-30 14:08 | EDDOCDS ---
Physician Documentation [facility] Name: Ambrocio Dickerson Age: 51 yrs Sex: Male : 1965 Arrival Date: 09/28/2016 Time: 06:45 Bed 17 Private MD: Willem Doll MD Disposition: 09/28/16 12:23 Discharged to Home/Self Care. Impression: Multiple fractures of ribs, left side - Pulmonary Nodules. - Condition is Stable. - Discharge Instructions: Rib Fracture, Pulmonary Nodule. - Prescriptions for Percocet 5- 325 mg Oral Tablet - take 1 tablet by ORAL route every 6 hours As needed MDD: 4 tabs; 20 tablet. - Medication Reconciliation, Local Pharmacy Hours form. - Follow up: Willem Doll; When: 2 - 3 days; Reason: Recheck today's complaints. Follow up: Ciera Doll RPA-C; When: 2 - 3 days; Reason: Recheck today's complaints. - Problem is new. - Symptoms have improved. - Notes: You were seen in the ED for left rib pain after a fall. Bloodwork showed no acute findings. CT scan of the chest showed fractures of the left 9th and 10th ribs, nondisplaced. It also showed nodules in the lungs that will need further evaluation with your primary doctor this week and possible repeat CT scan. Please call your primary provider to discuss this and arrange to be seen this week. Rest. You may take Ibuprofen as needed for pain and may take Percocet as needed for breakthrough pain (no driving or operating machinery while on this medicine). Use the incentive spirometer several times daily to prevent a developing pneumonia. Return to the ED for any worsening or uncontrolled pain, shortness of breath, fever, new pain, or any other concerns. Historical: - Allergies: No known drug Allergies; - Home Meds: 1. aspirin 81 mg Oral chew 1 tab once daily (Last dose: 09/27/2016) 2. atorvastatin 40 mg oral tab 1 tab once daily (Last dose: 09/27/2016) 3. lisinopril 10 mg Oral tab 1 tab once daily (Last dose: 09/27/2016) 4. omeprazole 20 mg Oral cpDR 1 cap once daily (Last dose: 09/27/2016) 5. metoprolol succinate 25 mg Tb24 1 tab once daily (Last dose: 09/27/2016) - PMHx: Hypertension; Hypercholesterolemia; GERD; - PSHx: Appendectomy; Knee surgery- Right; Knee surgery- Left; - Social history: Smoking status: Patient uses tobacco products, heavy tobacco smoker. No barriers to communication noted, The patient speaks fluent Belgian, Speaks appropriately for age. - Family history: Not pertinent. - : The pt / caregiver states he / she is not on anticoagulants. Home medication list is obtained from pill bottles. - Exposure Risk Screening:: None identified. Vital Signs: 09/28 06:55 BP 177 / 100 (auto/); bcj 06:57 BP 177 / 100; Pulse 75; Resp 20; Temp 98.5(TE); Pulse Ox 99% on R/A; Pain 10/10; nb2 07:09 BP 208 / 106 (auto/); bcj 07:24 BP 179 / 86 (auto/); bcj 07:28 BP 162 / 84 RA Supine (man/lg); nb2 07:39 BP 169 / 102 (auto/); bcj 07:54 BP 157 / 79 (auto/); bcj 08:09 BP 160 / 78 (auto/); bcj 08:24 BP 154 / 87 (auto/); bcj 08:31 Pulse Ox 97% ; bcj 08:39 BP 174 / 87 (auto/); bcj 08:54 BP 157 / 81 (auto/); bcj 08:54 Pulse Ox 98% ; bcj 09:09 BP 149 / 79 (auto/); bcj 09:26 BP 160 / 71 (auto/); bcj 12:23 Pulse 62 MON; Pulse Ox 99% ; srm 13:04 BP 170 / 77; Pulse 86; Resp 18; Temp 98; Pulse Ox 98% on R/A; Pain 5/10; bcj 06:57 RN notified of BP nb2 MDM: 07:05 IV Saline Lock ordered. br1 07:05 Lighting Equipment Operator/Pulse Ox/q 30 min VS ordered. br1 07:05 Rhythm Strip to chart ordered. br1 07:05 Undress patient appropriately for examination ordered. br1 07:05 Misc. Nursing Order ordered. br1 07:06 Basic Metabolic Profile Ordered. EDMS 07:06 CBC with Diff Ordered. EDMS 07:06 Cardiac Injury Profile Ordered. EDMS 07:06 Troponin Ordered. EDMS 07:07 ECG WITH READING ER PHYS+CARDIAG ordered. EDMS 07:20 morphine 4 mg IVP once ordered. br1 07:21 Lisinopril 10 mg PO once ordered. br1 07:21 meTOPROLOL Extended Release 24 hour Tablet (Succinate) 25 mg PO once ordered. br1 07:23 CT Chest With Contrast Ordered. EDMS 07:55 Financial registration complete. lg 08:18 [facility] Payment Agreement was scanned into [employer] and attached to record. lg 08:39 CBC with Diff Reviewed. br1 08:39 EKG-ADULT Reviewed. br1 09:49 Basic Metabolic Profile Reviewed. br1 09:49 Cardiac Injury Profile Reviewed. br1 09:49 Troponin Reviewed. br1 12:18 Call Respiratory ordered. br1 12:18 -Incentive Spirometer ordered. br1 12:21 Call Respiratory complete. deg 09/30 07:08 ED course: dr bansal faxed formal report of ct chest for fu mlg. ml Administered Medications: 09/28 07:42 Drug: meTOPROLOL 25 mg [metoprolol succinate ER 25 mg tablet,extended release 24 hr (1 bcj tabs)] Route: PO; 07:43 Drug: morphine 4 mg [morphine 4 mg/mL intravenous cartridge (1 mL)] Route: IVP; [facility]ubital; 09:02 Follow up: Response: Pain is decreased [facility] 07:43 Drug: Lisinopril 10 mg [lisinopril 10 mg tablet (1 tabs)] Route: PO; [facility] Signatures: Dispatcher [employer] EDOK Hilary Pantoja MD MD ml Murray, Denise, Progress Developer Unit deg Oralia Solorio, LEIGHA RN [id number] Tevin Lopez RN RN bcBob Alford, Reg Reg lg Cory Wei MD MD br1 The chart was reviewed and I authenticate all verbal orders and agree with the evaluation and treatment provided.Attachments: 08:18 [facility] Payment Agreement lg Chart Complete MTDD
== END 2016-09-28 13:06 | disposition home or self-care (01) ==
LOC: M ED 06:45
DX: S22.42XA Multiple fractures of ribs, left side, initial encounter for closed fracture (principal); R91.8 Other nonspecific abnormal finding of lung field; I10 Essential (primary) hypertension; E78.00 Pure hypercholesterolemia, unspecified; K21.9 Gastro-esophageal reflux disease without esophagitis; F17.210 Nicotine dependence, cigarettes, uncomplicated; Z79.82 Long term (current) use of aspirin; Z79.899 Other long term (current) drug therapy; W01.198A Fall on same level from slipping, tripping and stumbling with subsequent striking against other object, initial encounter; Y92.090 Kitchen in other non-institutional residence as the place of occurrence of the external cause; Y93.01 Activity, walking, marching and hiking; Y99.9 Unspecified external cause status
CPT/HCPCS: 36415; 71260; 80048; 82550; 82553; 84484; 85025; 93005; 93041; 96374; 99285; Q9967

== ENCOUNTER → 2016-10-07 | Outpatient (REF) | payer MEDICARE, MEDICAID ==
[~2016-10-07] MED LIST changes: +ASPI81TA85 PO; +ATOR40TA PO; +BENA25CA4 PO; +CYCL10TA PO; +DOCQ100C PO; +LISI10TA4 PO; +PERC7.5T3 PO
[2016-10-07 13:44] LABS: ALBUMIN 4.2 GM/DL (3.2-5.2); ALBUMIN/GLOBULIN RATIO 1.75 (1.00-1.93); ALKALINE PHOSPHATASE 118 U/L (45-117); ALT/SGPT 31 U/L (12-78); ANION GAP 7 MEQ/L (8-16); AST/SGOT 13 U/L (15-37); BILIRUBIN,TOTAL 0.7 MG/DL (0.2-1.0); BLOOD UREA NITROGEN 15 MG/DL (7-18); CALCIUM LEVEL 9.1 MG/DL (8.5-10.1); CARBON DIOXIDE LEVEL 30 MEQ/L (21-32); CHLORIDE LEVEL 105 MEQ/L (98-107); CHOLESTEROL LEVEL 96 MG/DL (<200); CREATININE FOR GFR 0.71 MG/DL (0.70-1.30); GLOMERULAR FILTRATION RATE > 60.0 (>56); GLUCOSE, FASTING 108 MG/DL (70-105); POTASSIUM SERUM 4.3 MEQ/L (3.5-5.1); SODIUM LEVEL 142 MEQ/L (136-145); TOTAL PROTEIN 6.6 GM/DL (6.4-8.2); TRIGLYCERIDES LEVEL 71 MG/DL (<150)
== END ==
LOC: M SFHCADAM 07:55
PROVIDERS: ATTEND Physician Assistant
DX: I10 Essential (primary) hypertension (principal); E78.5 Hyperlipidemia, unspecified

== ENCOUNTER 2016-10-11 07:27 | Emergency (ER) | payer MEDICARE, MEDICAID ==
[~2016-10-11] VITALS: Ht 167.6 cm; Wt 78.9 kg
[~2016-10-11 07:27] MED LIST changes: -ASPI81TA85 PO; -ATOR40TA PO; -BENA25CA4 PO; -CYCL10TA PO; -DOCQ100C PO; -LISI10TA4 PO; -PERC7.5T3 PO
[2016-10-11] MEDS ORDERED: LISI10TA4 PO (07:57)
[2016-10-11] MEDS ORDERED: ATOR40TA PO (07:57)
[2016-10-11] MEDS ORDERED: DOCQ100C PO (07:57)
[2016-10-11] MEDS ORDERED: CYCL10TA PO (07:57)
[2016-10-11] MEDS ORDERED: PERC7.5T3 PO (07:57)
[2016-10-11] MEDS ORDERED: ASPI81TA85 PO (07:57)
[2016-10-11] MEDS ORDERED: BENA25CA4 PO (07:57)
[2016-10-11] MEDS ORDERED: METHYLNALTREXONE BROMIDE 12 MG/0.6 ML VIAL (RELISTOR) SC ONE (08:30)
[2016-10-11] MEDS ORDERED: KETOROLAC 30 MG/ML VIAL (J1885) IM ONE (08:30)
[2016-10-11 08:49] LABS: MEAN CORPUSCULAR HEMOGLOBIN 32.1 pg (27.0-33.0); MEAN CORPUSCULAR HGB CONC 33.7 g/dl (32.0-36.5); MEAN CORPUSCULAR VOLUME 95.1 fl (80.0-96.0); RED CELL DISTRIBUTION WIDTH 12.8 % (11.5-14.5)
[2016-10-11 09:06] LABS: ALBUMIN 4.3 GM/DL (3.2-5.2); ALBUMIN/GLOBULIN RATIO 1.39 (1.00-1.93); ALKALINE PHOSPHATASE 135 U/L (45-117); ALT/SGPT 44 U/L (12-78); ANION GAP 9 MEQ/L (8-16); AST/SGOT 23 U/L (15-37); BILIRUBIN,TOTAL 0.4 MG/DL (0.2-1.0); BLOOD UREA NITROGEN 13 MG/DL (7-18); CALCIUM LEVEL 9.4 MG/DL (8.5-10.1); CARBON DIOXIDE LEVEL 28 MEQ/L (21-32); CHLORIDE LEVEL 106 MEQ/L (98-107); CREATININE FOR GFR 0.68 MG/DL (0.70-1.30); GLOMERULAR FILTRATION RATE > 60.0 (>56); GLUCOSE, FASTING 105 MG/DL (70-105); POTASSIUM SERUM 4.9 MEQ/L (3.5-5.1); SODIUM LEVEL 143 MEQ/L (136-145); TOTAL PROTEIN 7.4 GM/DL (6.4-8.2)
[2016-10-11] MEDS ORDERED: BISACODYL 10 MG SUPP PR ONE (10:45)
[2016-10-11] MEDS ORDERED: MAGNESIUM CITRATE 300 ML BTL PO ONE (10:45)
[2016-10-11 12:03] VITALS: BP 158/82
--- NOTE | 2016-10-11 14:45 | REP ---
REASON: Abdominal distention. Supine and upright views of the abdomen show multiple gas-filled mildly dilated small bowel loops with a few air fluid levels seen on the upright view. There is no free intraperitoneal air. There is no roxie evidence of intestinal obstruction. There is gas in the rectum. The accompanying frontal view of the chest is normal. IMPRESSION: Possible early SBO or ileus. Signed by Kevin Akins DO 10/11/2016 03:17 P
--- NOTE | 2016-10-11 19:42 | ED PDOC ---
Provider Note ryan bansal faxed formal report of abdl series for fu Hilary Romano MD Oct 11, 2016 19:42
--- NOTE | 2016-10-12 10:04 | REP ---
REASON: Pain after trauma. FINDINGS: Five views of the left ribs show no acute fracture or destructive osseous lesion. The accompanying frontal view of the chest shows no cardiomegaly, infiltrates, effusions or pneumothoraces. IMPRESSION: Negative left ribs series. Signed by Kevin Akins DO 10/12/2016 12:06 P
== END 2016-10-11 12:13 | disposition home or self-care (01) ==
LOC: M ED 08:47
DX: K59.03 Drug induced constipation (principal); S22.41XD Multiple fractures of ribs, right side, subsequent encounter for fracture with routine healing; X58.XXXD Exposure to other specified factors, subsequent encounter; Y92.89 Other specified places as the place of occurrence of the external cause; I10 Essential (primary) hypertension; E78.00 Pure hypercholesterolemia, unspecified; F17.200 Nicotine dependence, unspecified, uncomplicated; J30.2 Other seasonal allergic rhinitis; Z79.899 Other long term (current) drug therapy; Z79.82 Long term (current) use of aspirin
CPT/HCPCS: 36415; 71100; 74022; 80053; 83605; 83690; 85027; 87086; 96372; 99282; J1885

== ENCOUNTER → 2017-03-01 | Outpatient (CLI) | payer MEDICARE, MEDICAID ==
[~2017-03-01] MED LIST changes: +ASPI81TA85 PO; +ATOR40TA75 PO; +BENA25CA4 PO; +CYCL10TA PO; +DOCQ100C PO; +ISOVUE-370 76% 100ML VIAL (Q9967) As Ordered ONE; +LISI10TA4 PO; +PERC7.5T11 PO; -ULTR50TA PO; +ULTR50TA8 PO
--- NOTE | 2017-03-01 09:33 | REP ---
CT of the chest with IV contrast: Comparisons 09/28/2016. The patient's known seven right upper lobe small lung nodules are stable and unchanged. The three known left upper lobe small lung nodules are stable and unchanged. The single small lung nodule in each lower lobe are stable and unchanged. There are no new lung nodules. The previously identified nondisplaced fractures in the posterior arches of the left ninth and tenth ribs are again identified today demonstrate some callus. There is no mediastinal, hilar or axillary adenopathy. The thoracic aorta is unremarkable. Cardiac size is normal. There is no pericardial effusion. The upper abdomen. The visualized hepatic parenchyma, gallbladder, pancreas and spleen are unremarkable. There is no adrenal nodule. There is a simple cyst in the upper pole of the left kidney as previously, today measuring maximally 5.4 cm. Impression: All of the patient's known lung nodules are unchanged. There are no new nodules. The largest nodule is in the right lower lobe measuring 7 mm. The lack of interval change of this nodule, and all other nodules converts these nodules to category 2 lesions. Follow-up annual CT surveillance is recommended. Signed by Vernon Rivera MD 03/01/2017 09:25 A
== END ==
LOC: M RAD 07:32
PROVIDERS: ATTEND Physician Assistant
DX: R91.8 Other nonspecific abnormal finding of lung field (principal)
CPT/HCPCS: 71260; Q9967

== ENCOUNTER → 2017-08-12 | Outpatient (REF) | payer MEDICARE, MEDICAID ==
[2017-08-12 19:27] LABS: HEMATOCRIT 42.8 % (42.0-52.0); MEAN CORPUSCULAR HEMOGLOBIN 30.4 pg (27.0-33.0); MEAN CORPUSCULAR HGB CONC 32.7 g/dl (32.0-36.5); PLATELET COUNT, AUTOMATED 245 10^3/uL (150-450); RED CELL DISTRIBUTION WIDTH 13.3 % (11.5-14.5); WHITE BLOOD COUNT 10.5 10^3/uL (4.0-10.0)
[2017-08-12 19:44] LABS: INR 0.99; PROTHROMBIN TIME 13.2 SECONDS (12.4-14.5)
[2017-08-12 19:45] LABS: PARTIAL THROMBOPLASTIN TIME 32.5 SECONDS (26.8-37.9)
[2017-08-12 20:10] LABS: ALBUMIN 4.2 GM/DL (3.2-5.2); ALBUMIN/GLOBULIN RATIO 1.45 (1.00-1.93); ALKALINE PHOSPHATASE 119 U/L (45-117); ALT/SGPT 37 U/L (12-78); ANION GAP 8 MEQ/L (8-16); AST/SGOT 16 U/L (7-37); BILIRUBIN,TOTAL 0.6 MG/DL (0.2-1.0); BLOOD UREA NITROGEN 19 MG/DL (7-18); CALCIUM LEVEL 9.3 MG/DL (8.5-10.1); CARBON DIOXIDE LEVEL 31 MEQ/L (21-32); CHLORIDE LEVEL 104 MEQ/L (98-107); CHOLESTEROL LEVEL 110 MG/DL (<200); CREATININE FOR GFR 0.77 MG/DL (0.70-1.30); GLOMERULAR FILTRATION RATE > 60.0 (>56); GLUCOSE, FASTING 99 MG/DL (70-105); HDL CHOLESTEROL 39 MG/DL (>40); NON-HDL-C 71 MG/DL; POTASSIUM SERUM 4.5 MEQ/L (3.5-5.1); SODIUM LEVEL 143 MEQ/L (136-145); TOTAL PROTEIN 7.1 GM/DL (6.4-8.2); TRIGLYCERIDES LEVEL 190 MG/DL (<150)
== END ==
LOC: M SFHCADAM 12:04
DX: K62.5 Hemorrhage of anus and rectum (principal); E78.5 Hyperlipidemia, unspecified; R19.04 Left lower quadrant abdominal swelling, mass and lump; I11.0 Hypertensive heart disease with heart failure; K21.9 Gastro-esophageal reflux disease without esophagitis
CPT/HCPCS: 80053

== ENCOUNTER 2017-10-02 16:46 | Emergency (ER) | payer MEDICARE, MEDICAID ==
[2017-10-02] MEDS: IPRATROPIUM 0.5MG/ALBUTEROL 2.5MG INH SOL UD 3ML (DUONEB)(J7620) NEB (18:21)
[2017-10-02 18:47] LABS: BASO % 0.4 % (0.0-1.0); EOS # 0.2 10^3/uL (0.0-0.50); EOS % 2.2 % (0.0-3.0); HEMATOCRIT 39.3 % (42.0-52.0); HEMOGLOBIN 13.5 g/dl (14.0-18.0); IMMATURE GRANULOCYTE % 0.3 % (0-3.0); LYMPH # 4.1 10^3/uL (1.5-4.5); LYMPH % 39.8 % (24.0-44.0); MEAN CORPUSCULAR HEMOGLOBIN 31.3 pg (27.0-33.0); MEAN CORPUSCULAR HGB CONC 34.4 g/dl (32.0-36.5); MEAN CORPUSCULAR VOLUME 91.2 fl (80.0-96.0); MONO # 0.7 10^3/uL (0.0-0.8); NEUTROPHILS # 5.1 10^3/uL (1.8-7.7); NEUTROPHILS % 50.3 % (36.0-66.0); PLATELET COUNT, AUTOMATED 196 10^3/uL (150-450); RED BLOOD COUNT 4.31 10^6/uL (4.30-6.10); RED CELL DISTRIBUTION WIDTH 13.1 % (11.5-14.5); WHITE BLOOD COUNT 10.2 10^3/uL (4.0-10.0)
[2017-10-02] MEDS: methylPREDNISolone INJ 125 MG/2 ML VIAL (J2930) IV (18:49)
[2017-10-02 18:51] LABS: LACTIC ACID SEPSIS PROTOCOL 1.1 MMOL/L (0.4-2.0)
[2017-10-02 18:59] LABS: ALBUMIN 3.9 GM/DL (3.2-5.2); ALBUMIN/GLOBULIN RATIO 1.44 (1.00-1.93); ALKALINE PHOSPHATASE 113 U/L (45-117); ALT/SGPT 60 U/L (12-78); ANION GAP 6 MEQ/L (8-16); AST/SGOT 12 U/L (7-37); BILIRUBIN,DIRECT 0.1 MG/DL (0.0-0.2); BILIRUBIN,TOTAL 0.3 MG/DL (0.2-1.0); BLOOD UREA NITROGEN 11 MG/DL (7-18); CALCIUM LEVEL 8.6 MG/DL (8.5-10.1); CARBON DIOXIDE LEVEL 27 MEQ/L (21-32); CHLORIDE LEVEL 109 MEQ/L (98-107); CPK CREATINE PHOSPHOKINASE 57 U/L (39-308); CREATININE FOR GFR 0.62 MG/DL (0.70-1.30); GLOMERULAR FILTRATION RATE > 60.0 (>56); GLUCOSE, FASTING 94 MG/DL (70-100); MB/CK RELATIVE INDEX 1.75 (< OR =4); NT-PRO BNP 134 PG/ML (<125); POTASSIUM SERUM 3.8 MEQ/L (3.5-5.1); SODIUM LEVEL 142 MEQ/L (136-145); TOTAL PROTEIN 6.6 GM/DL (6.4-8.2); TROPONIN I < 0.02 NG/ML (< 0.10)
[2017-10-02] MEDS ORDERED: ISOVUE-370 76% 100ML VIAL (Q9967) As Ordered (19:29)
== END 2017-10-02 20:42 | disposition home or self-care (01) ==
LOC: M ED 16:46
DX: J44.1 Chronic obstructive pulmonary disease with (acute) exacerbation (principal); I10 Essential (primary) hypertension; K21.9 Gastro-esophageal reflux disease without esophagitis; F17.200 Nicotine dependence, unspecified, uncomplicated; Z88.5 Allergy status to narcotic agent; Z79.899 Other long term (current) drug therapy; Z79.82 Long term (current) use of aspirin
CPT/HCPCS: Q9967

== ENCOUNTER 2017-12-13 11:03 | Day surgery (SDC) | payer MEDICARE, MEDICAID ==
[2017-12-13] MEDS: NS 1,000 ML IV (11:15)
[2017-12-13] MEDS ORDERED: fentaNYL 100 MCG/2 ML INJECTION (J3010) As Ordered (12:35)
[2017-12-13] MEDS ORDERED: LIDOCAINE 2% INJ 100 MG/5 ML SDV (FOR ANES.) As Ordered (12:35)
[2017-12-13] MEDS ORDERED: PROPOFOL 200 MG/20 ML VIAL As Ordered (12:35)
== END 2017-12-13 13:41 | disposition home or self-care (01) ==
LOC: M OPP 11:03
DX: Z12.11 Encounter for screening for malignant neoplasm of colon (principal); K64.8 Other hemorrhoids; D12.0 Benign neoplasm of cecum; K22.8 Other specified diseases of esophagus; K44.9 Diaphragmatic hernia without obstruction or gangrene; K31.89 Other diseases of stomach and duodenum; R12 Heartburn; K21.9 Gastro-esophageal reflux disease without esophagitis; I10 Essential (primary) hypertension; E78.00 Pure hypercholesterolemia, unspecified; Z79.82 Long term (current) use of aspirin; Z79.899 Other long term (current) drug therapy; Z88.8 Allergy status to other drugs, medicaments and biological substances; J30.2 Other seasonal allergic rhinitis; F17.210 Nicotine dependence, cigarettes, uncomplicated; Z90.79 Acquired absence of other genital organ(s)
CPT/HCPCS: 45380

== ENCOUNTER 2018-02-11 12:27 | Emergency (ER) | payer MEDICARE, MEDICAID ==
[2018-02-11] MEDS: ASPIRIN 81 MG CHEW TABLET PO (12:50)
[2018-02-11] MEDS: NS 1,000 ML IV (12:50)
[2018-02-11 12:54] LABS: BASO % 0.2 % (0.0-1.0); EOS % 0.1 % (0.0-3.0); HEMATOCRIT 40.5 % (42.0-52.0); HEMOGLOBIN 13.9 g/dl (13.5-17.5); IMMATURE GRANULOCYTE % 0.4 % (0-3.0); LYMPH # 2.6 10^3/uL (1.5-4.5); LYMPH % 17.2 % (24.0-44.0); MEAN CORPUSCULAR HEMOGLOBIN 31.4 pg (27.0-33.0); MEAN CORPUSCULAR HGB CONC 34.3 g/dl (32.0-36.5); MEAN CORPUSCULAR VOLUME 91.6 fl (80.0-96.0); MONO # 0.9 10^3/uL (0.0-0.8); MONO % 5.6 % (0.0-5.0); NEUTROPHILS # 11.7 10^3/uL (1.8-7.7); NEUTROPHILS % 76.5 % (36.0-66.0); PLATELET COUNT, AUTOMATED 204 10^3/uL (150-450); RED BLOOD COUNT 4.42 10^6/uL (4.30-6.10); RED CELL DISTRIBUTION WIDTH 13.2 % (11.5-14.5); WHITE BLOOD COUNT 15.3 10^3/uL (4.0-10.0)
[2018-02-11 13:15] LABS: ALBUMIN 3.9 GM/DL (3.2-5.2); ALBUMIN/GLOBULIN RATIO 1.26 (1.00-1.93); ALKALINE PHOSPHATASE 104 U/L (45-117); ALT/SGPT 31 U/L (12-78); ANION GAP 8 MEQ/L (8-16); AST/SGOT 12 U/L (7-37); BILIRUBIN,DIRECT 0.2 MG/DL (0.0-0.2); BILIRUBIN,TOTAL 0.8 MG/DL (0.2-1.0); BLOOD UREA NITROGEN 12 MG/DL (7-18); CALCIUM LEVEL 9.2 MG/DL (8.5-10.1); CARBON DIOXIDE LEVEL 29 MEQ/L (21-32); CHLORIDE LEVEL 106 MEQ/L (98-107); CPK CREATINE PHOSPHOKINASE 71 U/L (39-308); CREATININE FOR GFR 0.75 MG/DL (0.70-1.30); FREE T4 1.16 NG/DL (0.76-1.46); GLOMERULAR FILTRATION RATE > 60.0 (>56); GLUCOSE, FASTING 95 MG/DL (70-100); LIPASE 55 U/L (73-393); POTASSIUM SERUM 3.7 MEQ/L (3.5-5.1); SODIUM LEVEL 143 MEQ/L (136-145); TROPONIN I < 0.02 NG/ML (< 0.10)
[2018-02-11 13:20] LABS: CK-MB VALUE MASS < 1.0 NG/ML (<3.6); NT-PRO BNP 218 PG/ML (<125)
[2018-02-11] MEDS ORDERED: ISOVUE-370 76% 100ML VIAL (Q9967) (13:41)
[2018-02-11 17:00] LABS: CK-MB VALUE MASS < 1.0 NG/ML (<3.6); CPK CREATINE PHOSPHOKINASE 65 U/L (39-308); MB/CK RELATIVE INDEX 1.53 (< OR =4); TROPONIN I < 0.02 NG/ML (< 0.10)
== END 2018-02-11 18:24 | disposition home or self-care (01) ==
LOC: M ED 12:27
DX: R07.9 Chest pain, unspecified (principal); I10 Essential (primary) hypertension; E78.5 Hyperlipidemia, unspecified; F17.200 Nicotine dependence, unspecified, uncomplicated; Z88.5 Allergy status to narcotic agent; J30.2 Other seasonal allergic rhinitis; Z79.899 Other long term (current) drug therapy; Z79.82 Long term (current) use of aspirin
CPT/HCPCS: Q9967

== ENCOUNTER 2018-05-29 14:41 | Emergency (ER) | payer MEDICARE, MEDICAID | END 2018-05-29 16:10 | disposition home or self-care (01) | LOC: M ED 14:41 | DX: S29.012A Strain of muscle and tendon of back wall of thorax, initial encounter (principal); X58.XXXA Exposure to other specified factors, initial encounter; Y92.098 Other place in other non-institutional residence as the place of occurrence of the external cause; R05 Cough; I10 Essential (primary) hypertension; E78.9 Disorder of lipoprotein metabolism, unspecified; K21.9 Gastro-esophageal reflux disease without esophagitis; Z88.5 Allergy status to narcotic agent; J30.2 Other seasonal allergic rhinitis; Z79.899 Other long term (current) drug therapy; Z79.82 Long term (current) use of aspirin | CPT/HCPCS: 99283 ==

== ENCOUNTER → 2018-11-13 | Outpatient (CLI) | payer MEDICARE, MEDICAID ==
[~2018-11-13] MED LIST changes: +CLAR10CA3 PO; -DOCQ100C PO; +DOCQ100C5 PO; +FLUT05CR TOP; -ISOVUE-370 76% 100ML VIAL (Q9967) As Ordered ONE; +PRED20TA PO; +ROBA500T PO
[2018-11-13 17:55] LABS: BASO % 0.2 % (0.0-1.0); EOS # 0.1 10^3/uL (0.0-0.50); HEMATOCRIT 41.1 % (42.0-52.0); HEMOGLOBIN 13.4 g/dl (13.5-17.5); LYMPH # 2.7 10^3/uL (1.5-4.5); LYMPH % 21.9 % (24.0-44.0); MEAN CORPUSCULAR HEMOGLOBIN 30.7 pg (27.0-33.0); MEAN CORPUSCULAR HGB CONC 32.6 g/dl (32.0-36.5); MEAN CORPUSCULAR VOLUME 94.1 fl (80.0-96.0); MONO # 0.7 10^3/uL (0.0-0.8); MONO % 5.7 % (0.0-5.0); NEUTROPHILS # 8.9 10^3/uL (1.8-7.7); PLATELET COUNT, AUTOMATED 218 10^3/uL (150-450); RED BLOOD COUNT 4.37 10^6/uL (4.30-6.10); WHITE BLOOD COUNT 12.5 10^3/uL (4.0-10.0)
[2018-11-13 18:01] LABS: ALT/SGPT 39 U/L (12-78); BILIRUBIN,TOTAL 0.4 MG/DL (0.2-1.0); BLOOD UREA NITROGEN 13 MG/DL (7-18); CALCIUM LEVEL 8.6 MG/DL (8.5-10.1); CARBON DIOXIDE LEVEL 29 MEQ/L (21-32); CHLORIDE LEVEL 109 MEQ/L (98-107); CREATININE FOR GFR 0.67 MG/DL (0.70-1.30); GLOMERULAR FILTRATION RATE > 60.0 (>56); GLUCOSE, FASTING 92 MG/DL (70-100); LIPASE 96 U/L (73-393); POTASSIUM SERUM 4.6 MEQ/L (3.5-5.1); SODIUM LEVEL 144 MEQ/L (136-145); TOTAL PROTEIN 6.6 GM/DL (6.4-8.2)
== END ==
LOC: M ADAMS 13:29
PROVIDERS: ATTEND Physician Assistant
DX: R10.30 Lower abdominal pain, unspecified (principal)

== ENCOUNTER → 2018-11-23 | Outpatient (CLI) | payer MEDICARE, MEDICAID ==
[~2018-11-23] MED LIST changes: +ISOVUE-370 76% 100ML VIAL (Q9967) As Ordered ONE
--- NOTE | 2018-11-24 09:54 | REP ---
CT CHEST WITH IV CONTRAST: HISTORY: Pulmonary parenchymal nodules. Comparison is made with multiple prior chest CT studies, the most recent of which is from February 11, 2018, and the most remote is dated September 28, 2016. CT CONTRAST DOSE: 75 mL of intravenous Isovue 370. There are multiple subcentimeter pulmonary nodules noted bilaterally. All of these are unchanged when compared with the February 11, 2018 prior study. The largest is again noted to be a 6 mm nodule in the right lower lobe. This is unchanged as well. They are also unchanged from the older study of September 28, 2016. Having demonstrated a 2-year interval of stability, these nodules can be considered benign. No new pulmonary nodule is appreciated. No hilar or mediastinal mass or adenopathy is observed. No adrenal lesion is seen. There is a cyst in the upper pole of the left kidney and a small sliding-type hiatal hernia noted incidentally. No vascular abnormality is seen. These incidental findings are unchanged as well. IMPRESSION: Multiple stable pulmonary nodules. No active disease. Left renal cyst and sliding hiatal hernia also noted. Electronically Signed by Parish Yanez MD 11/24/2018 10:10 A
== END ==
LOC: M RAD 16:53
PROVIDERS: ATTEND Physician Assistant
DX: R91.1 Solitary pulmonary nodule (principal); N28.1 Cyst of kidney, acquired; K44.9 Diaphragmatic hernia without obstruction or gangrene
CPT/HCPCS: 71260; Q9967

== ENCOUNTER → 2019-06-15 | Outpatient (REF) | payer MEDICARE, MEDICAID ==
[~2019-06-15] MED LIST changes: -ISOVUE-370 76% 100ML VIAL (Q9967) As Ordered ONE; -LISI20TA PO; +LISI20TA19 PO; -OMEP20CA3 PO; +OMEP20CA4 PO
[2019-06-15 19:27] LABS: HEMATOCRIT 40.1 % (42.0-52.0); HEMOGLOBIN 13.3 g/dl (13.5-17.5); MEAN CORPUSCULAR HEMOGLOBIN 31.1 pg (27.0-33.0); MEAN CORPUSCULAR HGB CONC 33.2 g/dl (32.0-36.5); MEAN CORPUSCULAR VOLUME 93.7 fl (80.0-96.0); PLATELET COUNT, AUTOMATED 199 10^3/uL (150-450); RED BLOOD COUNT 4.28 10^6/uL (4.30-6.10); WHITE BLOOD COUNT 12.5 10^3/uL (4.0-10.0)
[2019-06-15 19:42] LABS: ALBUMIN 3.9 GM/DL (3.2-5.2); ALT/SGPT 35 U/L (12-78); AMYLASE 41 U/L (25-115); BILIRUBIN,TOTAL 0.5 MG/DL (0.2-1.0); BLOOD UREA NITROGEN 20 MG/DL (7-18); CALCIUM LEVEL 9.1 MG/DL (8.5-10.1); CARBON DIOXIDE LEVEL 28 MEQ/L (21-32); CHLORIDE LEVEL 108 MEQ/L (98-107); CREATININE FOR GFR 0.74 MG/DL (0.70-1.30); GLOMERULAR FILTRATION RATE > 60.0 (>56); GLUCOSE, FASTING 79 MG/DL (70-100); LIPASE 86 U/L (73-393); POTASSIUM SERUM 4.5 MEQ/L (3.5-5.1); SODIUM LEVEL 142 MEQ/L (136-145); TOTAL PROTEIN 6.8 GM/DL (6.4-8.2)
== END ==
LOC: M SFHCADAM 16:36
PROVIDERS: ATTEND Physician Assistant
DX: K22.70 Barrett's esophagus without dysplasia (principal); K21.9 Gastro-esophageal reflux disease without esophagitis; R10.11 Right upper quadrant pain
CPT/HCPCS: 80053; 82150; 83690; 85027; G0463

== ENCOUNTER → 2019-06-28 | Outpatient (CLI) | payer MEDICARE, MEDICAID ==
--- NOTE | 2019-06-28 08:09 | REP ---
Clinical: Right upper quadrant pain. Technique: Real time boswell scale ultrasound examination using curved array transducer. Findings: The liver and pancreas are normal in contour, size, echogenicity without focal hepatic or pancreatic lesion identified. The gallbladder is normal and without gallstones, wall thickening, or pericholecystic fluid. No biliary ductal dilatation is appreciated and the common bile duct measures 1.8 mm diameter. The right kidney is normal in reniform shape without hydronephrosis and measures 11.0 x 4.6 x 5.1 cm. No ascites in the visualized right upper quadrant. Impression: Normal liver/abdominal ultrasound. Electronically Signed by Quentin Buchanan MD 06/28/2019 08:01 A
== END ==
LOC: M RAD 07:22
PROVIDERS: ATTEND Physician Assistant
DX: K22.70 Barrett's esophagus without dysplasia (principal); R10.11 Right upper quadrant pain

== ENCOUNTER 2020-03-01 03:55 | Emergency (ER) | payer MEDICARE, MEDICAID ==
[~2020-03-01 03:55] MED LIST changes: -ASPI81TA85 PO; +ASPI81TA86 PO; +CYCL-707 PO; -CYCL10TA PO; -LISI20TA19 PO; +LISI20TA35 PO; +OMEP1CAP73 PO; -OMEP20CA4 PO
[2020-03-01] MEDS ORDERED: AUGMENTIN 875 MG TAB As Ordered ONE (07:52)
[2020-04-07 17:08] LABS: BASO % 0.2 % (0.0-1.0); EOS # 0.1 10^3/uL (0.0-0.5); EOS % 0.5 % (0.0-3.0); HEMATOCRIT 42.2 % (42.0-52.0); HEMOGLOBIN 14.2 g/dl (13.5-17.5); LYMPH # 2.7 10^3/uL (1.5-5.0); LYMPH % 15.7 % (24.0-44.0); MEAN CORPUSCULAR HEMOGLOBIN 30.9 pg (27.0-33.0); MEAN CORPUSCULAR HGB CONC 33.6 g/dl (32.0-36.5); MEAN CORPUSCULAR VOLUME 91.9 fl (80.0-96.0); MONO % 5.8 % (0.0-5.0); NEUTROPHILS # 13.2 10^3/uL (1.5-8.5); NEUTROPHILS % 77.4 % (36.0-66.0); PLATELET COUNT, AUTOMATED 186 10^3/uL (150-450); RED BLOOD COUNT 4.59 10^6/uL (4.30-6.10); WHITE BLOOD COUNT 17.1 10^3/uL (4.0-10.0)
[2020-04-07 18:06] LABS: INR 1.06; PARTIAL THROMBOPLASTIN TIME 31.4 SECONDS (25.0-38.4)
--- NOTE | 2020-04-18 12:12 | ECGEPIP ---
SINUS BRADYCARDIA NONSPECIFIC ST & T-WAVE ABNORMALITY BORDERLINE ECG NO OLD AVAILABLE SEE SCANNED DOWNTIME REPORT MTDD
[2020-05-11 10:47] LABS: ALBUMIN 3.8 GM/DL (3.2-5.2); ALT/SGPT 38 U/L (12-78); BILIRUBIN,DIRECT 0.2 MG/DL (0.0-0.2); BILIRUBIN,TOTAL 0.8 MG/DL (0.2-1.0); BLOOD UREA NITROGEN 11 MG/DL (7-18); CARBON DIOXIDE LEVEL 28 MEQ/L (21-32); CHLORIDE LEVEL 109 MEQ/L (98-107); CK-MB VALUE MASS 1.3 NG/ML (<3.6); CPK CREATINE PHOSPHOKINASE 107 U/L (39-308); CREATININE FOR GFR 0.75 MG/DL (0.70-1.30); FREE T4 1.21 NG/DL (0.76-1.46); GLOMERULAR FILTRATION RATE > 60.0 (>56); GLUCOSE, FASTING 112 MG/DL (70-100); MB/CK RELATIVE INDEX 1.21 (< OR =4); SODIUM LEVEL 143 MEQ/L (136-145); TOTAL PROTEIN 6.7 GM/DL (6.4-8.2); TROPONIN I < 0.02 NG/ML (< 0.10)
== END 2020-03-01 08:01 | disposition home or self-care (01) ==
LOC: M ED 03:55
DX: H93.11 Tinnitus, right ear (principal); H66.91 Otitis media, unspecified, right ear; M54.2 Cervicalgia; I10 Essential (primary) hypertension; E78.5 Hyperlipidemia, unspecified; K21.9 Gastro-esophageal reflux disease without esophagitis; Z79.899 Other long term (current) drug therapy; Z88.5 Allergy status to narcotic agent; F17.210 Nicotine dependence, cigarettes, uncomplicated

== ENCOUNTER 2020-03-06 11:55 | Day surgery (SDC) | payer MEDICARE, MEDICAID ==
--- NOTE | 2020-04-10 11:28 | ROOR ---
Patient Name: Ambrocio Dickerson Procedure Date: 03/06/2020 10:21 AM Date of : 1965 Age: 54 Room: 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 Procedure: Pre-Anesthesia Assessment: - The heart rate, respiratory rate, oxygen saturations, blood pressure, adequacy of pulmonary ventilation, and response to care were monitored throughout the procedure. The Endoscope was introduced through the mouth, and advanced to the second part of duodenum. The upper GI endoscopy was accomplished without difficulty. The patient tolerated the procedure well. Findings: The Z-line was irregular and was found 35 cm from the incisors. Multiple biopsies were obtained with cold forceps for evaluation to rule out Henderson's Esophagus randomly at the gastroesophageal junction. A large hiatal hernia was present. No other significant abnormalities were identified in a careful examination of the stomach. The exam of the duodenum was otherwise normal. Impression: - Z-line irregular, 35 cm from the incisors. - Large hiatal hernia. - Multiple biopsies were obtained at the gastroesophageal junction. - The examination was otherwise normal. Recommendation: - Patient has a contact number available for emergencies. The signs and symptoms of potential delayed complications were discussed with the patient. Return to normal activities tomorrow. Written discharge instructions were provided to the patient. - High fiber diet. - Discharge patient to home. - Follow an antireflux regimen. - Continue present medications. - Await pathology results. - Telephone GI clinic for pathology results in 1 week. - Repeat upper endoscopy for surveillance based on pathology results. - Return to referring physician. - The findings and recommendations were discussed with the patient. Abad Mcclain MD Abad Mcclain MD 03/06/2020 10:33:19 AM Number of Addenda: 0 Note Initiated On: 03/06/2020 10:21 AM Estimated Blood Loss: Estimated blood loss: none.
== END 2020-03-06 14:30 | disposition home or self-care (01) ==
LOC: M SDC 11:55
PROVIDERS: ATTEND Internal Medicine Gastroenterology
DX: K22.8 Other specified diseases of esophagus (principal); K44.9 Diaphragmatic hernia without obstruction or gangrene; R12 Heartburn; K21.9 Gastro-esophageal reflux disease without esophagitis; I10 Essential (primary) hypertension; I48.91 Unspecified atrial fibrillation; F17.210 Nicotine dependence, cigarettes, uncomplicated; Z79.899 Other long term (current) drug therapy; Z88.5 Allergy status to narcotic agent; Z88.8 Allergy status to other drugs, medicaments and biological substances

== ENCOUNTER → 2020-03-09 | Emergency (ER) | payer MEDICARE, MEDICAID ==
[~2020-03-09] MED LIST changes: +BISO5TAB14 PO; +GINK1CAP PO; +MECL-86 PO; +PREDOPD OS
== END | disposition left against medical advice (07) ==
LOC: M ED 11:22
DX: Z53.21 Procedure and treatment not carried out due to patient leaving prior to being seen by health care provider (principal)

== ENCOUNTER → 2020-03-10 | Emergency (ER) | payer MEDICARE, MEDICAID | END | disposition home or self-care (01) | LOC: M ED 10:19 | DX: H65.03 Acute serous otitis media, bilateral (principal); H93.19 Tinnitus, unspecified ear; K21.9 Gastro-esophageal reflux disease without esophagitis; I10 Essential (primary) hypertension; E78.5 Hyperlipidemia, unspecified; Z79.899 Other long term (current) drug therapy; Z79.2 Long term (current) use of antibiotics; Z88.5 Allergy status to narcotic agent ==

== ENCOUNTER 2020-03-17 05:47 | Emergency (ER) | payer MEDICARE, MEDICAID ==
[~2020-03-17 05:47] MED LIST changes: -BISO5TAB14 PO; -GINK1CAP PO; -MECL-86 PO; -PREDOPD OS
[2020-03-17] MEDS ORDERED: ISOVUE-370 76% 100ML VIAL As Ordered ONE (08:33)
--- NOTE | 2020-04-19 15:31 | ECGEPIP ---
SINUS BRADYCARDIA MINIMAL VOLTAGE CRITERIA FOR LVH, CONSIDER NORMAL VARIANT BORDERLINE ECG NONSPECIFIC ST & T CHANGE NO PRIOR DUE TO DOWNTIME SEE SCANNED DOWNTIME REPORT MTDD
[2020-04-29 10:12] LABS: INR 1.08; PARTIAL THROMBOPLASTIN TIME 30.6 SECONDS (24.2-38.5); PROTHROMBIN TIME 14.2 SECONDS (12.5-14.3)
[2020-04-29 22:05] LABS: BASO % 0.2 % (0.0-1.0); EOS # 0.1 10^3/uL (0.0-0.5); EOS % 0.7 % (0.0-3.0); HEMATOCRIT 42.9 % (42.0-52.0); HEMOGLOBIN 14.4 g/dl (13.5-17.5); LYMPH # 2.5 10^3/uL (1.5-5.0); LYMPH % 19.9 % (24.0-44.0); MEAN CORPUSCULAR HGB CONC 33.6 g/dl (32.0-36.5); MEAN CORPUSCULAR VOLUME 92.3 fl (80.0-96.0); MONO # 0.8 10^3/uL (0.0-0.8); MONO % 6.2 % (0.0-5.0); NEUTROPHILS % 72.6 % (36.0-66.0); PLATELET COUNT, AUTOMATED 200 10^3/uL (150-450); RED BLOOD COUNT 4.65 10^6/uL (4.30-6.10); WHITE BLOOD COUNT 12.4 10^3/uL (4.0-10.0)
[2020-06-02 11:10] LABS: ALBUMIN 3.7 GM/DL (3.2-5.2); ALT/SGPT 27 U/L (12-78); BILIRUBIN,DIRECT 0.3 MG/DL (0.0-0.2); BLOOD UREA NITROGEN 10 MG/DL (7-18); CALCIUM LEVEL 9.1 MG/DL (8.5-10.1); CARBON DIOXIDE LEVEL 30 MEQ/L (21-32); CHLORIDE LEVEL 107 MEQ/L (98-107); CK-MB VALUE MASS < 1.0 NG/ML (<3.6); CPK CREATINE PHOSPHOKINASE 49 U/L (39-308); GLOMERULAR FILTRATION RATE > 60.0 (>56); GLUCOSE, FASTING 98 MG/DL (70-100); LIPASE 51 U/L (73-393); MB/CK RELATIVE INDEX 2.04 (< OR =4); NT-PRO BNP 122 PG/ML (<125); POTASSIUM SERUM 4.2 MEQ/L (3.5-5.1); SODIUM LEVEL 141 MEQ/L (136-145); TOTAL PROTEIN 6.5 GM/DL (6.4-8.2)
[2020-06-02 11:10] LABS: CK-MB VALUE MASS < 1.0 NG/ML (<3.6); CPK CREATINE PHOSPHOKINASE 46 U/L (39-308); MB/CK RELATIVE INDEX 2.17 (< OR =4); TROPONIN I < 0.02 NG/ML (< 0.10)
== END 2020-03-17 15:10 | disposition home or self-care (01) ==
LOC: M ED 05:47
DX: R91.8 Other nonspecific abnormal finding of lung field (principal); R06.02 Shortness of breath; R07.89 Other chest pain; R00.1 Bradycardia, unspecified; R05 Cough; R09.89 Other specified symptoms and signs involving the circulatory and respiratory systems; H66.91 Otitis media, unspecified, right ear; Z79.2 Long term (current) use of antibiotics; I10 Essential (primary) hypertension; I48.91 Unspecified atrial fibrillation; E78.5 Hyperlipidemia, unspecified; K21.9 Gastro-esophageal reflux disease without esophagitis; F17.210 Nicotine dependence, cigarettes, uncomplicated; Z82.49 Family history of ischemic heart disease and other diseases of the circulatory system; Z79.899 Other long term (current) drug therapy; Z88.5 Allergy status to narcotic agent
CPT/HCPCS: 36415; 71045; 71275; 80047; 80048; 80076; 82550; 82553; 83690; 83880; 84484; 85025; 85610; 85730; 93005; 99284; Q9967; U0002

== ENCOUNTER 2020-05-02 05:06 | Emergency (ER) | payer MEDICARE, MEDICAID ==
[~2020-05-02] VITALS: Ht 167.6 cm; Wt 64.1 kg
[2020-05-02 05:06] VITALS: BP 193/93
[2020-05-02] MEDS ORDERED: GINK1CAP PO (05:18)
[2020-05-02] MEDS ORDERED: PREDOPD OS (05:18)
[2020-05-02] MEDS ORDERED: BISO5TAB14 PO (05:18)
[2020-05-02] MEDS ORDERED: MECLIZINE 25 MG TABLET PO ONE (05:30)
[2020-05-02] MEDS ORDERED: MECL-86 PO (05:32)
== END 2020-05-02 05:47 | disposition home or self-care (01) ==
LOC: M ED 05:06
DX: H93.11 Tinnitus, right ear (principal); R42 Dizziness and giddiness; I10 Essential (primary) hypertension; I48.91 Unspecified atrial fibrillation; Z79.52 Long term (current) use of systemic steroids; Z79.899 Other long term (current) drug therapy; Z88.6 Allergy status to analgesic agent; Z88.8 Allergy status to other drugs, medicaments and biological substances

== ENCOUNTER → 2020-06-04 | Outpatient (REF) | payer MEDICARE, MEDICAID ==
[~2020-06-04] MED LIST changes: +BISO5TAB14 PO; +GINK1CAP PO; +MECL-86 PO; +PREDOPD OS
[2020-06-04 12:47] LABS: HEMATOCRIT 44.6 % (42.0-52.0); HEMOGLOBIN 14.5 g/dl (13.5-17.5); MEAN CORPUSCULAR HGB CONC 32.5 g/dl (32.0-36.5); MEAN CORPUSCULAR VOLUME 95.5 fl (80.0-96.0); PLATELET COUNT, AUTOMATED 207 10^3/uL (150-450); RED BLOOD COUNT 4.67 10^6/uL (4.30-6.10); WHITE BLOOD COUNT 10.2 10^3/uL (4.0-10.0)
[2020-06-04 12:58] LABS: ALBUMIN 3.7 GM/DL (3.2-5.2); ALT/SGPT 31 U/L (12-78); BILIRUBIN,TOTAL 0.4 MG/DL (0.2-1.0); BLOOD UREA NITROGEN 19 MG/DL (7-18); CARBON DIOXIDE LEVEL 30 MEQ/L (21-32); CHLORIDE LEVEL 108 MEQ/L (98-107); CHOLESTEROL LEVEL 139 MG/DL (<200); CHOLESTEROL RISK RATIO 3.088 (<5); CREATININE FOR GFR 0.73 MG/DL (0.70-1.30); GLOMERULAR FILTRATION RATE > 60.0 (>56); GLUCOSE, FASTING 95 MG/DL (70-100); HDL CHOLESTEROL 45 MG/DL (>40); LDL CHOLESTEROL 77 MG/DL (<100); NON-HDL-C 94 MG/DL; POTASSIUM SERUM 4.6 MEQ/L (3.5-5.1); SODIUM LEVEL 141 MEQ/L (136-145); TOTAL PROTEIN 6.5 GM/DL (6.4-8.2); TRIGLYCERIDES LEVEL 87 MG/DL (<150)
[2020-06-04 13:03] LABS: VITAMIN B12 LEVEL 1648 PG/ML (247-911)
== END ==
LOC: M LAB REF 12:32
PROVIDERS: ATTEND Physician Assistant
DX: I11.9 Hypertensive heart disease without heart failure (principal); Z12.5 Encounter for screening for malignant neoplasm of prostate; K21.9 Gastro-esophageal reflux disease without esophagitis
CPT/HCPCS: 36415; 80053; 80061; 82607; 85027; G0103

== ENCOUNTER → 2020-07-13 | Outpatient (CLI) | payer MEDICARE, MEDICAID ==
[~2020-07-13] MED LIST changes: +DOXY-350 PO; +PERCOCET PO
== END ==
LOC: M LABSMTC 10:53
PROVIDERS: ATTEND Anesthesiology
DX: Z11.59 Encounter for screening for other viral diseases (principal)

== ENCOUNTER 2020-07-15 09:16 | Day surgery (SDC) | payer MEDICARE, MEDICAID ==
[~2020-07-15] VITALS: Ht 167.6 cm; Wt 74.4 kg
[~2020-07-15 09:16] MED LIST changes: -DOXY-350 PO; +LIDOCAINE 2% 100MG/5ML SDV (FOR ANES.) As Ordered ONE; +LR 1,000 ML IV ONE; +MIDAZOLAM INJ 2MG/2ML VIAL (J2250 PER 1MG) As Ordered ONE; +ONDANSETRON 4MG/2ML VIAL As Ordered ONE; -PERCOCET PO; +ROCURONIUM BROMIDE 50 MG/5 ML VIAL As Ordered ONE; +dexameTHASONE 4 MG/ML 1ML VIAL (J1100 PER 1MG) As Ordered ONE; +fentaNYL 250 MCG/5 ML INJECTION (J3010) As Ordered ONE; +propofoL 200 MG/20 ML VIAL As Ordered ONE
[2020-07-15] MEDS ORDERED: DOXY-350 PO (09:31)
[2020-07-15] MEDS ORDERED: PERCOCET PO (09:31)
[2020-07-15] MEDS ORDERED: LIDOCAINE W/EPINEPHRINE 1% 20ML VIAL As Ordered ONE (10:29)
[2020-07-15] MEDS ORDERED: METHYLENE BLUE 0.5% (5MG/ML) 10 ML AMP (PROVAYBLUE) As Ordered ONE (10:29)
[2020-07-15] MEDS ORDERED: OXYMETAZOLINE 0.05% NASAL SPRAY (AFRIN) As Ordered ONE ×2 (10:30→11:05)
[2020-07-15] MEDS ORDERED: ePHEDrine SULFATE 25 MG/5 ML(5MG/ML) SYRINGE As Ordered ONE (11:18)
[2020-07-15] MEDS ORDERED: ACETAMINOPHEN 1000MG 100ML IV BTL (OFIRMEV) (J0131 PER 10MG) As Ordered ONE (11:25)
[2020-07-15] MEDS ORDERED: SUGAMMADEX SODIUM 500 MG/5 ML VIAL (BRIDION) As Ordered ONE (11:25)
[2020-07-15] MEDS ORDERED: LABETALOL 100MG/20ML VIAL As Ordered ONE (12:10)
[2020-07-15] MEDS ORDERED: ONDANSETRON 4MG/2ML VIAL As Ordered ONE (12:10)
[2020-07-15] MEDS: LABETALOL 100MG/20ML VIAL IV SCH ×5 (12:14→12:40)
[2020-07-15] MEDS ORDERED: ONDANSETRON 4MG/2ML VIAL IV PRN (12:30)
[2020-07-15] MEDS ORDERED: LR 1,000 ML IV SCH (12:30)
[2020-07-15] MEDS ORDERED: fentaNYL 100 MCG/2 ML INJECTION (J3010) IV PRN (12:30)
[2020-07-15] MEDS ORDERED: PERCOCET 5MG/325MG TAB PO PRN (12:30)
[2020-07-15] MEDS ORDERED: IBUPROFEN 800 MG TAB PO PRN (12:30)
--- NOTE | 2020-07-15 14:19 | RO ---
OPERATIVE NOTE DATE OF OPERATION: 07/15/2020 PREOPERATIVE DIAGNOSIS: Deviated septum, chronic rhinitis. POSTOPERATIVE DIAGNOSIS: Deviated septum, chronic rhinitis. PROCEDURE: Septoplasty, partial reduction of inferior turbinates. SURGEON: Rebel Pruitt MD INDICATIONS: This is a 54-year-old male with nasal obstruction, congestion. PROCEDURE: Satisfactory general endotracheal anesthesia was administered, vaginal pack placed, nose prepared for surgery by placing cotton soaked pledgets with Afrin solution into the nasal cavity bilaterally. 1% Xylocaine with 1:100,000 Epinephrine was injected into the nasal septum and turbinates. A [place] incision was made on the left side of the nose. A mucoperichondrial flap and envelope was created on the left side of the nasal septum and carried down to the junction of the bony and cartilaginous septum. This was then with an elevator and an envelope was then created on the right side of the septum. Liban scissors was used to make a high cut in the perpendicular plate in the midportion of the vomer and a central segment of bony septum was resected. Next, with the round knife on the Esmeralda elevator, a strip of cartilage was resected from the floor of the nose, mobilizing the quadrilateral cartilage and creating a swinging door. Then a central segment of cartilaginous septum was resected, preserving a 1 cm dorsal and caudal strut. Double-action rongeur was used to take down deflected portions of the perpendicular plate as well. Finally, the maxillary crest spur was taken down after elevating mucoperiosteum off both sides of it with a chisel. A segment of the resected cartilage was morselized and placed back into the septal envelope. The incision was closed using an interrupted 5-0 chromic suture. Then a 4-0 plain suture was placed in a [id number] fashion through the two leaves of the mucoperichondrium to appose them. Next the turbinate surgery was done. He had markedly hypertrophic turbinates. They were medially infractured and using the turbinate Coblator probe two parallel passes of the probe were made with 10 second coblation times for each of the set points on the probe. Finally suction cautery was used to coagulate the posterior inferior tip of the inferior turbinate. A #15 blade was used to make an incision on the anterior tip of the inferior turbinate. Cross splints were placed in nose and sewn to columella with 2-0 Prolene suture. The pharyngeal pack was removed, throat suctioned. The patient was awakened, extubated and sent to recovery in satisfactory condition. He will be discharged home on Tylox for pain and Doxycycline 100 mg twice daily. He will be seen in the office in one week.
[2020-07-15 14:35] VITALS: BP 160/95
--- NOTE | 2020-07-16 08:29 | ECGEPIP ---
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 Isolated PVC. Nonspecific inferior ST/T wave abnormalities Slightly slower rate but otherwise unchanged from 02/11/18. Electronically Signed on 07-16-2020 8:29:05 EST by Kenji Kelly
== END 2020-07-15 14:38 | disposition home or self-care (01) ==
LOC: M SDC 09:16
PROVIDERS: ATTEND Specialist
DX: J34.2 Deviated nasal septum (principal); J31.0 Chronic rhinitis; E78.00 Pure hypercholesterolemia, unspecified; I10 Essential (primary) hypertension; I48.91 Unspecified atrial fibrillation; K21.9 Gastro-esophageal reflux disease without esophagitis; Z88.5 Allergy status to narcotic agent; Z79.899 Other long term (current) drug therapy
CPT/HCPCS: 30140; 30520; 88300; 93005; J0131; J1100; J2250; J2405; J3010; Q9968

== ENCOUNTER 2020-07-16 21:31 | Emergency (ER) | payer MEDICARE, MEDICAID ==
[~2020-07-16] VITALS: Ht 167.6 cm; Wt 76.9 kg
[~2020-07-16 21:31] MED LIST changes: +DOXY-350 PO; -LIDOCAINE 2% 100MG/5ML SDV (FOR ANES.) As Ordered ONE; -LR 1,000 ML IV ONE; -MIDAZOLAM INJ 2MG/2ML VIAL (J2250 PER 1MG) As Ordered ONE; -ONDANSETRON 4MG/2ML VIAL As Ordered ONE; +PERCOCET PO; -ROCURONIUM BROMIDE 50 MG/5 ML VIAL As Ordered ONE; -dexameTHASONE 4 MG/ML 1ML VIAL (J1100 PER 1MG) As Ordered ONE; -fentaNYL 250 MCG/5 ML INJECTION (J3010) As Ordered ONE; -propofoL 200 MG/20 ML VIAL As Ordered ONE
[2020-07-16 22:25] LABS: BASO % 0.1 % (0.0-1.0); EOS % 0.1 % (0.0-3.0); HEMATOCRIT 41.5 % (42.0-52.0); HEMOGLOBIN 13.8 g/dl (13.5-17.5); LYMPH # 2.7 10^3/uL (1.5-5.0); LYMPH % 15.8 % (24.0-44.0); MEAN CORPUSCULAR HEMOGLOBIN 30.5 pg (27.0-33.0); MEAN CORPUSCULAR HGB CONC 33.3 g/dl (32.0-36.5); MEAN CORPUSCULAR VOLUME 91.6 fl (80.0-96.0); MONO # 1.3 10^3/uL (0.0-0.8); MONO % 7.8 % (0.0-5.0); NEUTROPHILS # 12.8 10^3/uL (1.5-8.5); NEUTROPHILS % 75.7 % (36.0-66.0); PLATELET COUNT, AUTOMATED 198 10^3/uL (150-450); RED BLOOD COUNT 4.53 10^6/uL (4.30-6.10); WHITE BLOOD COUNT 16.9 10^3/uL (4.0-10.0)
[2020-07-16 22:35] LABS: INR 1.08; PROTHROMBIN TIME 14.2 SECONDS (12.5-14.3)
[2020-07-16 22:36] LABS: PARTIAL THROMBOPLASTIN TIME 30.7 SECONDS (24.2-38.5)
[2020-07-16 23:24] VITALS: BP 162/76
== END 2020-07-16 23:27 | disposition home or self-care (01) ==
LOC: M ED 21:31
DX: R09.81 Nasal congestion (principal); I10 Essential (primary) hypertension; J44.9 Chronic obstructive pulmonary disease, unspecified; E78.5 Hyperlipidemia, unspecified; K22.70 Barrett's esophagus without dysplasia; K21.9 Gastro-esophageal reflux disease without esophagitis; Z79.899 Other long term (current) drug therapy; Z88.5 Allergy status to narcotic agent; J30.2 Other seasonal allergic rhinitis; F17.210 Nicotine dependence, cigarettes, uncomplicated

== ENCOUNTER → 2021-01-15 | Outpatient (CLI) | payer MEDICARE, MEDICAID ==
[~2021-01-15] MED LIST changes: +LISI10TA22 PO; -LISI10TA4 PO
--- NOTE | 2021-01-15 18:51 | REPVR ---
PROCEDURE INFORMATION: Exam: CT Maxillofacial Without Contrast, Sinus Exam date and time: 01/15/2021 6:11 PM Age: 55 years old Clinical indication: Other: Lt side pressure/blockage of max area/dev septum TECHNIQUE: Imaging protocol: CT Maxillofacial without contrast. Focus on the sinuses. Radiation optimization: All CT scans at this facility use at least one of these dose optimization techniques: automated exposure control; mA and/or kV adjustment per patient size (includes targeted exams where dose is matched to clinical indication); or iterative reconstruction. COMPARISON: CT Head without contrast 03/01/2020 4:54 AM FINDINGS: Frontal sinuses: Normal. No air-fluid levels. Ethmoid air cells: Normal. No air-fluid levels. Sphenoid sinuses: Normal. No air-fluid levels. Maxillary sinuses: Normal. No air-fluid levels. Ostiomeatal units are patent. Nasal cavity/Septum: A right-sided pablo bullosa is noted. Orbital cavity: Orbits are normal. Globes are unremarkable. Bones/joints: There is an old right medial orbital wall fracture. Soft tissues: Unremarkable. Mastoid air cells: Poor pneumatization of the mastoids is likely due to remote/chronic inflammation. IMPRESSION: 1. No acute abnormality. 2. Chronic findings as discussed above. Electronically signed by: Gurjit Eng On 01/15/2021 18:51:49 PM
== END ==
LOC: M RAD 17:55
PROVIDERS: ATTEND Specialist
DX: J34.2 Deviated nasal septum (principal)

== ENCOUNTER → 2021-06-11 | Outpatient (REF) | payer MEDICARE, MEDICAID ==
[2021-06-11 17:49] LABS: HEMATOCRIT 39.7 % (42.0-52.0); HEMOGLOBIN 13.3 g/dl (13.5-17.5); MEAN CORPUSCULAR HEMOGLOBIN 30.7 pg (27.0-33.0); MEAN CORPUSCULAR HGB CONC 33.5 g/dl (32.0-36.5); MEAN CORPUSCULAR VOLUME 91.7 fl (80.0-96.0); PLATELET COUNT, AUTOMATED 214 10^3/uL (150-450); RED BLOOD COUNT 4.33 10^6/uL (4.30-6.10); WHITE BLOOD COUNT 12.4 10^3/uL (4.0-10.0)
[2021-06-11 18:18] LABS: ALT/SGPT 28 U/L (12-78); BLOOD UREA NITROGEN 18 MG/DL (7-18); CALCIUM LEVEL 9.1 MG/DL (8.5-10.1); CARBON DIOXIDE LEVEL 28 MEQ/L (21-32); CHLORIDE LEVEL 108 MEQ/L (98-107); CREATININE FOR GFR 0.77 MG/DL (0.70-1.30); GLOMERULAR FILTRATION RATE > 60.0 (>56); GLUCOSE, FASTING 92 MG/DL (70-100); POTASSIUM SERUM 4.4 MEQ/L (3.5-5.1); SODIUM LEVEL 141 MEQ/L (136-145)
[2021-06-11 18:19] LABS: ALBUMIN 3.7 GM/DL (3.2-5.2); BILIRUBIN,TOTAL 0.3 MG/DL (0.2-1.0); CHOLESTEROL LEVEL 116 MG/DL (<200); CHOLESTEROL RISK RATIO 2.761 (<5); HDL CHOLESTEROL 42 MG/DL (>40); LDL CHOLESTEROL 55 MG/DL (<100); NON-HDL-C 74 MG/DL; TOTAL PROTEIN 6.6 GM/DL (6.4-8.2); TRIGLYCERIDES LEVEL 95 MG/DL (<150)
== END ==
LOC: M SFHCADAM 15:45
PROVIDERS: ATTEND Physician Assistant
DX: K21.9 Gastro-esophageal reflux disease without esophagitis (principal); I10 Essential (primary) hypertension; K22.70 Barrett's esophagus without dysplasia; E78.00 Pure hypercholesterolemia, unspecified; I49.9 Cardiac arrhythmia, unspecified; Z12.5 Encounter for screening for malignant neoplasm of prostate
CPT/HCPCS: 80053; 80061; 85027; G0103; G0463

== ENCOUNTER → 2021-10-20 | Outpatient (CLI) | payer MEDICARE, MEDICAID ==
[~2021-10-20] MED LIST changes: +ISOVUE-370 76% 100ML VIAL ONE
== END ==
LOC: M PLAIMG 13:14
PROVIDERS: ATTEND Physician Assistant
DX: R91.8 Other nonspecific abnormal finding of lung field (principal)
CPT/HCPCS: 71260; Q9967

== ENCOUNTER 2022-03-29 09:06 | Emergency (ER) | payer MEDICARE, MEDICAID ==
[~2022-03-29] VITALS: Ht 167.6 cm; Wt 76.2 kg
[~2022-03-29 09:06] MED LIST changes: -ISOVUE-370 76% 100ML VIAL ONE
[2022-03-29] MEDS ORDERED: LISI20TA33 PO (09:23)
[2022-03-29] MEDS ORDERED: AMLO1TAB24 PO (09:23)
[2022-03-29] MEDS ORDERED: FAMO20TA5 PO (09:23)
[2022-03-29] MEDS ORDERED: ACETAMINOPHEN 325 MG TAB PO ONE (09:40)
[2022-03-29] MEDS ORDERED: HYDR-3713 PO (10:27)
[2022-03-29 10:35] VITALS: BP 164/80
== END 2022-03-29 10:37 | disposition home or self-care (01) ==
LOC: M ED 09:06
DX: S22.32XA Fracture of one rib, left side, initial encounter for closed fracture (principal); W10.8XXA Fall (on) (from) other stairs and steps, initial encounter; Y92.018 Other place in single-family (private) house as the place of occurrence of the external cause; I10 Essential (primary) hypertension; I48.91 Unspecified atrial fibrillation; E78.5 Hyperlipidemia, unspecified; Z88.5 Allergy status to narcotic agent; J30.2 Other seasonal allergic rhinitis

== ENCOUNTER 2022-04-02 06:29 | Emergency (ER) | payer MEDICARE, MEDICAID ==
[~2022-04-02] VITALS: Ht 167.6 cm; Wt 76.0 kg
[~2022-04-02 06:29] MED LIST changes: +AMLO1TAB24 PO; +FAMO20TA5 PO; +HYDR-3713 PO; +LISI20TA33 PO
[2022-04-02] MEDS ORDERED: ACET-716 PO (07:00)
[2022-04-02 07:59] LABS: BASO % 0.3 % (0.0-1.0); EOS % 0.4 % (0.0-3.0); HEMOGLOBIN 14.1 g/dl (13.5-17.5); LYMPH # 2.7 10^3/uL (1.5-5.0); LYMPH % 28.7 % (24.0-44.0); MEAN CORPUSCULAR HEMOGLOBIN 30.3 pg (27.0-33.0); MEAN CORPUSCULAR HGB CONC 32.8 g/dl (32.0-36.5); MEAN CORPUSCULAR VOLUME 92.3 fl (80.0-96.0); MONO # 0.6 10^3/uL (0.0-0.8); MONO % 6.1 % (2.0-8.0); NEUTROPHILS # 6.1 10^3/uL (1.5-8.5); NEUTROPHILS % 64.3 % (36.0-66.0); PLATELET COUNT, AUTOMATED 233 10^3/uL (150-450); RED BLOOD COUNT 4.66 10^6/uL (4.30-6.10); WHITE BLOOD COUNT 9.5 10^3/uL (4.0-10.0)
[2022-04-02 08:27] LABS: ALBUMIN 4.1 GM/DL (3.2-5.2); BILIRUBIN,DIRECT 0.2 MG/DL (0.0-0.2); BILIRUBIN,TOTAL 0.5 MG/DL (0.2-1.0); TOTAL PROTEIN 7.1 GM/DL (6.4-8.2)
[2022-04-02] MEDS ORDERED: PERCOCET 5MG/325MG TAB PO ONE (08:35)
[2022-04-02] MEDS ORDERED: ISOVUE-370 76% 100ML VIAL As Ordered ONE (08:40)
[2022-04-02 09:29] LABS: CK-MB VALUE MASS < 1.0 NG/ML (<3.6); CPK CREATINE PHOSPHOKINASE 52 U/L (39-308); MB/CK RELATIVE INDEX 1.92 (< OR =4)
[2022-04-02 12:30] VITALS: BP 167/95
== END 2022-04-02 12:50 | disposition home or self-care (01) ==
LOC: M ED 06:29
DX: I10 Essential (primary) hypertension (principal); K44.9 Diaphragmatic hernia without obstruction or gangrene; K80.20 Calculus of gallbladder without cholecystitis without obstruction; N28.1 Cyst of kidney, acquired; I48.91 Unspecified atrial fibrillation; E78.5 Hyperlipidemia, unspecified; K21.9 Gastro-esophageal reflux disease without esophagitis; Z88.5 Allergy status to narcotic agent; Z79.899 Other long term (current) drug therapy; F17.200 Nicotine dependence, unspecified, uncomplicated
CPT/HCPCS: 36415; 71046; 74177; 80047; 80076; 82550; 82553; 83690; 84484; 85025; 93005; 99285; Q9967

== ENCOUNTER → 2022-06-09 | Outpatient (CLI) | payer MEDICARE, MEDICAID ==
[~2022-06-09] MED LIST changes: +ACET-716 PO; -DOXY-350 PO; +DOXY-444 PO
== END ==
LOC: M LABSMTC 10:27
PROVIDERS: ATTEND Anesthesiology
DX: Z01.812 Encounter for preprocedural laboratory examination (principal); Z20.822 Contact with and (suspected) exposure to COVID-19

== ENCOUNTER 2022-06-12 07:07 | Day surgery (SDC) | payer MEDICARE, MEDICAID ==
[~2022-06-12] VITALS: Ht 167.6 cm; Wt 73.4 kg
[~2022-06-12 07:07] MED LIST changes: +ceFAZolin SOD 2 GM in IV 1 EA IV ONE
[2022-06-12] MEDS ORDERED: BUPIVACAINE/EPIN 0.25% 30 ML VIAL As Ordered ONE ×2 (07:17→10:54)
[2022-06-12] MEDS ORDERED: LR 1,000 ML IV SCH ×2 (07:35→12:00)
[2022-06-12] MEDS ORDERED: MIDAZOLAM INJ 2MG/2ML VIAL (J2250 PER 1MG) As Ordered ONE (08:00)
[2022-06-12] MEDS ORDERED: ROCURONIUM BROMIDE 50 MG/5 ML VIAL As Ordered ONE (08:00)
[2022-06-12] MEDS ORDERED: propofoL 200 MG/20 ML VIAL As Ordered ONE (08:00)
[2022-06-12] MEDS ORDERED: LIDOCAINE 2% 100MG/5ML SDV (FOR ANES.) As Ordered ONE (08:00)
[2022-06-12] MEDS ORDERED: ONDANSETRON 4MG 2ML VIAL As Ordered ONE (08:00)
[2022-06-12] MEDS ORDERED: fentaNYL 100 MCG/2 ML INJECTION As Ordered ONE ×2 (08:00→11:54)
[2022-06-12] MEDS ORDERED: dexameTHASONE 4 MG/ML 1ML VIAL (J1100 PER 1MG) As Ordered ONE (08:00)
[2022-06-12] MEDS ORDERED: ACETAMINOPHEN 1000MG 100ML IV BAG As Ordered ONE (11:33)
[2022-06-12] MEDS ORDERED: KETOROLAC 60MG 2ML VIAL As Ordered ONE (11:34)
[2022-06-12] MEDS ORDERED: SUGAMMADEX SODIUM 500 MG/5 ML VIAL (BRIDION) As Ordered ONE (11:35)
[2022-06-12] MEDS ORDERED: ONDANSETRON 4MG 2ML VIAL IV PRN (12:00)
[2022-06-12] MEDS ORDERED: MORPHINE 2 MG/ML 1ML VIAL IV PRN (12:00)
[2022-06-12] MEDS ORDERED: fentaNYL 100 MCG/2 ML INJECTION IV PRN (12:00)
[2022-06-12] MEDS ORDERED: NS 1,000 ML IV SCH (12:55)
[2022-06-12] MEDS ORDERED: traMADol 50 MG TAB PO PRN (12:55)
[2022-06-12 13:30] VITALS: BP 164/79
== END 2022-06-12 13:33 | disposition home or self-care (01) ==
LOC: M SDC 07:07
PROVIDERS: ATTEND Surgery
DX: K80.20 Calculus of gallbladder without cholecystitis without obstruction (principal); J30.2 Other seasonal allergic rhinitis; Z79.899 Other long term (current) drug therapy; I10 Essential (primary) hypertension; E78.5 Hyperlipidemia, unspecified; K21.9 Gastro-esophageal reflux disease without esophagitis; F17.210 Nicotine dependence, cigarettes, uncomplicated; Z88.5 Allergy status to narcotic agent
CPT/HCPCS: 47562; 88304; J0131; J0690; J1100; J1885; J2250; J2405; J3010

== ENCOUNTER → 2022-07-23 | Outpatient (REF) | payer MEDICARE, MEDICAID ==
[~2022-07-23] MED LIST changes: -ceFAZolin SOD 2 GM in IV 1 EA IV ONE
[2022-07-23 17:55] LABS: HEMATOCRIT 40.9 % (42.0-52.0); HEMOGLOBIN 13.6 g/dl (13.5-17.5); MEAN CORPUSCULAR HEMOGLOBIN 31.1 pg (27.0-33.0); MEAN CORPUSCULAR HGB CONC 33.3 g/dl (32.0-36.5); MEAN CORPUSCULAR VOLUME 93.4 fl (80.0-96.0); PLATELET COUNT, AUTOMATED 264 10^3/uL (150-450); RED BLOOD COUNT 4.38 10^6/uL (4.30-6.10)
[2022-07-23 17:59] LABS: ALBUMIN 4.4 G/DL (3.2-5.2); ALKALINE PHOSPHATASE 124 U/L (46-116); ALT/SGPT 28 U/L (7.0-40); AST/SGOT 25 U/L (<34); BILIRUBIN,TOTAL 0.9 MG/DL (0.3-1.2); BLOOD UREA NITROGEN 16 MG/DL (9-23); CALCIUM LEVEL 9.5 MG/DL (8.5-10.1); CARBON DIOXIDE LEVEL 26 MMOL/L (20-31); CHLORIDE LEVEL 103 MMOL/L (98-107); CHOLESTEROL LEVEL 131 MG/DL (<200); CHOLESTEROL RISK RATIO 3.01 (<5); CREATININE FOR GFR 0.73 MG/DL (0.70-1.30); GLOMERULAR FILTRATION RATE > 60.0 (>56); GLUCOSE, FASTING 82 MG/DL (60-100); HDL CHOLESTEROL 43.4 MG/DL (>40); LDL CHOLESTEROL 74.2 MG/DL (<100); NON-HDL-C 88 MG/DL; POTASSIUM SERUM 4.4 MMOL/L (3.5-5.1); SODIUM LEVEL 138 MMOL/L (136-145); TOTAL PROTEIN 7.2 G/DL (5.7-8.2); TRIGLYCERIDES LEVEL 67 MG/DL (<150)
== END ==
LOC: M SFHCADAM 14:50
PROVIDERS: ATTEND Physician Assistant
DX: K21.9 Gastro-esophageal reflux disease without esophagitis (principal); F17.218 Nicotine dependence, cigarettes, with other nicotine-induced disorders; J44.9 Chronic obstructive pulmonary disease, unspecified; Z12.5 Encounter for screening for malignant neoplasm of prostate; E78.5 Hyperlipidemia, unspecified
CPT/HCPCS: 80053; 80061; 85027; G0103

== ENCOUNTER 2022-10-10 11:01 | Emergency (ER) | payer MEDICARE, MEDICAID ==
[~2022-10-10] VITALS: Ht 167.6 cm; Wt 79.6 kg
[2022-10-10 11:02] VITALS: BP 153/91
[2022-10-10 12:24] LABS: BASO % 0.2 % (0.0-1.0); EOS % 0.2 % (0.0-3.0); HEMATOCRIT 43.1 % (42.0-52.0); HEMOGLOBIN 14.5 g/dl (13.5-17.5); LYMPH # 3.4 10^3/uL (1.5-5.0); LYMPH % 17.8 % (24.0-44.0); MEAN CORPUSCULAR HEMOGLOBIN 30.9 pg (27.0-33.0); MEAN CORPUSCULAR HGB CONC 33.6 g/dl (32.0-36.5); MEAN CORPUSCULAR VOLUME 91.7 fl (80.0-96.0); MONO % 5.5 % (2.0-8.0); NEUTROPHILS # 14.5 10^3/uL (1.5-8.5); NEUTROPHILS % 75.9 % (36.0-66.0); PLATELET COUNT, AUTOMATED 230 10^3/uL (150-450); WHITE BLOOD COUNT 19.1 10^3/uL (4.0-10.0)
[2022-10-10] MEDS ORDERED: ISOVUE-370 76% 100ML VIAL As Ordered ONE (12:43)
[2022-10-10 12:52] LABS: ALBUMIN 4.2 G/DL (3.2-5.2); BILIRUBIN,DIRECT 0.3 MG/DL (<0.4)
[2022-10-10 13:04] LABS: RSV AMPLIFICATION NEGATIVE (NEGATIVE)
[2022-10-10] MEDS ORDERED: AMPICILLIN SOD/SULBACTAM SOD 3 GM in D5W MINI-BAG PLUS 100 ML IV ONE (15:10)
[2022-10-10] MEDS ORDERED: CIPR-249 PO (16:23)
[2022-10-10] MEDS ORDERED: METR-265 PO (16:23)
== END 2022-10-10 16:40 | disposition home or self-care (01) ==
LOC: M ED 11:01
DX: K61.1 Rectal abscess (principal); I10 Essential (primary) hypertension; E78.5 Hyperlipidemia, unspecified; K21.9 Gastro-esophageal reflux disease without esophagitis; F17.210 Nicotine dependence, cigarettes, uncomplicated; Z88.5 Allergy status to narcotic agent; Z79.899 Other long term (current) drug therapy
CPT/HCPCS: 74177; 80047; 80076; 83605; 83690; 85025; 87040; 87631; 96374; 99283; Q9967

== ENCOUNTER → 2022-10-27 | Outpatient (CLI) | payer MEDICARE, MEDICAID ==
[~2022-10-27] MED LIST changes: +CIPR-249 PO; +ISOVUE-370 76% 100ML VIAL As Ordered ONE; +METR-265 PO
== END ==
LOC: M RAD 07:20
PROVIDERS: ATTEND Physician Assistant
DX: R91.8 Other nonspecific abnormal finding of lung field (principal)
CPT/HCPCS: 71260; Q9967

== ENCOUNTER → 2022-12-10 | Outpatient (REF) | payer MEDICARE, MEDICAID ==
[~2022-12-10] MED LIST changes: -ISOVUE-370 76% 100ML VIAL As Ordered ONE
== END ==
LOC: M SFHCADAM 12:30
PROVIDERS: ATTEND Physician Assistant
DX: J01.90 Acute sinusitis, unspecified (principal)

== ENCOUNTER → 2023-04-19 | Outpatient (CLI) | payer MEDICARE, MEDICAID ==
[~2023-04-19] MED LIST changes: +ISOVUE-370 76% 100ML VIAL As Ordered ONE
== END ==
LOC: M RAD 16:45
PROVIDERS: ATTEND Physician Assistant
DX: N28.1 Cyst of kidney, acquired (principal)
CPT/HCPCS: 74178; Q9967

== ENCOUNTER → 2023-05-11 | Outpatient (CLI) | payer MEDICARE, MEDICAID ==
[~2023-05-11] MED LIST changes: -ISOVUE-370 76% 100ML VIAL As Ordered ONE
== END ==
LOC: M RAD 12:10
PROVIDERS: ATTEND Physician Assistant
DX: N28.1 Cyst of kidney, acquired (principal)

== ENCOUNTER → 2023-09-02 | Outpatient (CLI) | payer MEDICARE, MEDICAID | LOC: M RAD 14:51 | PROVIDERS: ATTEND Physician Assistant | DX: F17.218 Nicotine dependence, cigarettes, with other nicotine-induced disorders (principal) ==

== ENCOUNTER 2023-10-13 08:15 | Day surgery (SDC) | payer MEDICARE, MEDICAID ==
[~2023-10-13] VITALS: Ht 167.6 cm; Wt 76.4 kg
[~2023-10-13 08:15] MED LIST changes: +FLUTISP INH; +INCR1INH; +OMEP40CA5 PO; +SPIR12.9
[2023-10-13] MEDS: NS 1,000 ML IV ONE (08:40)
[2023-10-13] MEDS ORDERED: fentaNYL 100 MCG/2 ML INJECTION As Ordered ONE (10:02)
[2023-10-13 10:36] VITALS: TEMP 97.1
[2023-10-13 10:55] VITALS: BP 141/71; O2SAT 98
[2023-10-13] MEDS ORDERED: propofoL 200 MG/20 ML VIAL As Ordered ONE (11:17)
== END 2023-10-13 11:06 | disposition home or self-care (01) ==
LOC: M OPP 08:15
PROVIDERS: ATTEND Internal Medicine Gastroenterology
DX: Z86.010 Personal history of colon polyps (principal); K64.0 First degree hemorrhoids; K44.9 Diaphragmatic hernia without obstruction or gangrene; K22.70 Barrett's esophagus without dysplasia; K31.89 Other diseases of stomach and duodenum; K31.A0 Gastric intestinal metaplasia, unspecified; F17.200 Nicotine dependence, unspecified, uncomplicated; I25.119 Atherosclerotic heart disease of native coronary artery with unspecified angina pectoris; Z79.02 Long term (current) use of antithrombotics/antiplatelets; Z79.51 Long term (current) use of inhaled steroids; Z79.899 Other long term (current) drug therapy
CPT/HCPCS: 43239; 88305; G0105; J3010

== ENCOUNTER → 2023-10-21 | Outpatient (CLI) | payer MEDICARE, MEDICAID ==
[~2023-10-21] MED LIST changes: +ISOVUE-370 76% 100ML VIAL As Ordered ONE
== END ==
LOC: M RAD 13:13
PROVIDERS: ATTEND Physician Assistant
DX: N28.1 Cyst of kidney, acquired (principal)
CPT/HCPCS: 74178; Q9967

== ENCOUNTER 2023-11-25 11:07 | Day surgery (SDC) | payer MEDICARE, MEDICAID ==
[~2023-11-25] VITALS: Ht 167.6 cm; Wt 75.4 kg
[~2023-11-25 11:07] MED LIST changes: +ALBU8.5H INH; +BAYE81TA10 PO; +FAMO1TAB11 PO; +HYDR-3490 PO; -ISOVUE-370 76% 100ML VIAL As Ordered ONE; -SPIR12.9; +SPIR12.9 INH
[2023-11-25] MEDS: LR 1,000 ML IV SCH (12:29)
[2023-11-25] MEDS ORDERED: LIDOCAINE 2% 100MG/5ML SDV (FOR ANES.) As Ordered ONE (13:19)
[2023-11-25] MEDS ORDERED: MIDAZOLAM INJ 2MG/2ML VIAL As Ordered ONE (13:19)
[2023-11-25] MEDS ORDERED: ACETAMINOPHEN 1000MG 100ML IV BAG As Ordered ONE (13:19)
[2023-11-25] MEDS ORDERED: ONDANSETRON 4MG 2ML VIAL As Ordered ONE (13:19)
[2023-11-25] MEDS ORDERED: propofoL 200 MG/20 ML VIAL As Ordered ONE (13:19)
[2023-11-25] MEDS ORDERED: fentaNYL 100 MCG/2 ML INJECTION As Ordered ONE (13:19)
[2023-11-25] MEDS: CIPRODEX OTIC SUSP 7.5ML As Ordered ONE (13:50)
[2023-11-25] MEDS ORDERED: fentaNYL 100 MCG/2 ML INJECTION IV PRN (14:10)
[2023-11-25] MEDS ORDERED: LR 1,000 ML IV SCH (14:10)
[2023-11-25] MEDS ORDERED: METOCLOPRAMIDE INJ 10MG/2ML VIAL IV PRN (14:10)
[2023-11-25] MEDS ORDERED: diphenhydrAMINE 50MG/ML VIAL IV PRN (14:10)
[2023-11-25] MEDS ORDERED: ONDANSETRON 4MG 2ML VIAL IV PRN (14:10)
[2023-11-25 14:57] VITALS: BP 145/82; TEMP 97.9; O2SAT 100
== END 2023-11-25 15:13 | disposition home or self-care (01) ==
LOC: M SDC 11:07
PROVIDERS: ATTEND Otolaryngology
DX: H69.93 Unspecified Eustachian tube disorder, bilateral (principal); H90.6 Mixed conductive and sensorineural hearing loss, bilateral; I48.91 Unspecified atrial fibrillation; I25.10 Atherosclerotic heart disease of native coronary artery without angina pectoris; I10 Essential (primary) hypertension; E78.5 Hyperlipidemia, unspecified; J44.9 Chronic obstructive pulmonary disease, unspecified; K21.9 Gastro-esophageal reflux disease without esophagitis; J30.1 Allergic rhinitis due to pollen; Z88.5 Allergy status to narcotic agent; Z79.899 Other long term (current) drug therapy; Z79.82 Long term (current) use of aspirin; F17.210 Nicotine dependence, cigarettes, uncomplicated
CPT/HCPCS: 69436; J0131; J1100; J2250; J2405; J3010

== ENCOUNTER → 2023-12-30 | Outpatient (CLI) | payer MEDICARE, MEDICAID ==
[~2023-12-30] MED LIST changes: +DOXY-440 PO; -DOXY-444 PO
== END ==
LOC: M RAD 15:10
PROVIDERS: ATTEND Physician Assistant
DX: Z12.2 Encounter for screening for malignant neoplasm of respiratory organs (principal); F17.218 Nicotine dependence, cigarettes, with other nicotine-induced disorders; R91.8 Other nonspecific abnormal finding of lung field

== ENCOUNTER → 2024-05-09 | Outpatient (CLI) | payer MEDICARE, MEDICAID | LOC: M RAD 12:57 | PROVIDERS: ATTEND Physician Assistant | DX: N28.1 Cyst of kidney, acquired (principal) ==

== ENCOUNTER 2024-08-10 08:02 | Day surgery (SDC) | payer MEDICARE, MEDICAID ==
[~2024-08-10] VITALS: Ht 167.6 cm; Wt 77.1 kg
[2024-08-10] MEDS ORDERED: fentaNYL 250 MCG/5 ML INJECTION As Ordered ONE (11:02)
[2024-08-10] MEDS ORDERED: ONDANSETRON 4MG 2ML VIAL As Ordered ONE (11:02)
[2024-08-10] MEDS ORDERED: SUGAMMADEX SODIUM 500 MG/5 ML VIAL (BRIDION) As Ordered ONE (11:02)
[2024-08-10] MEDS ORDERED: LIDOCAINE 2% 100MG/5ML SDV (FOR ANES.) As Ordered ONE (11:02)
[2024-08-10] MEDS ORDERED: ROCURONIUM BROMIDE 50MG/5ML VIAL As Ordered ONE (11:02)
[2024-08-10] MEDS ORDERED: propofoL 200 MG/20 ML VIAL As Ordered ONE (11:02)
[2024-08-10] MEDS ORDERED: MIDAZOLAM INJ 2MG/2ML VIAL As Ordered ONE (11:03)
[2024-08-10] MEDS ORDERED: dexmedeTOMIDine (4MCG/ML)200MCG/50ML BTL (PRECEDEX) As Ordered ONE (11:40)
[2024-08-10] MEDS ORDERED: PHENYLephrine 500MCG 5ML (100MCG/ML) SYRINGE As Ordered ONE (12:20)
[2024-08-10] MEDS ORDERED: LACRILUBE (AKWA TEARS) OPHTH OINT 3.5GM As Ordered ONE (12:25)
[2024-08-10] MEDS: CIPRODEX OTIC SUSP 7.5ML As Ordered ONE (12:31)
[2024-08-10] MEDS ORDERED: ACETAMINOPHEN 1000MG/100ML IV BAG As Ordered ONE (12:36)
[2024-08-10] MEDS: EPINEPHrine 1MG/ML INJ 30ML MD-VIAL As Ordered ONE (12:40)
[2024-08-10] MEDS ORDERED: NS (Normal Saline) 0.9% 1,000 ML IV SCH (12:55)
[2024-08-10] MEDS ORDERED: ONDANSETRON 4MG 2ML VIAL IV PRN (12:55)
[2024-08-10] MEDS ORDERED: HYDROMORPHONE HCL 0.5 MG/ 0.5 ML SYRINGE IV PRN (12:55)
[2024-08-10] MEDS: METHYLENE BLUE 0.5% (5MG/ML) 10 ML AMP (PROVAYBLUE) As Ordered ONE (13:07)
[2024-08-10] MEDS: EPINEPHrine 1MG/10ML SYRINGE 1.5IN As Ordered ONE (13:07)
[2024-08-10] MEDS: PHENYLEPHRINE REG/STR 0.5% NASAL SPRAY 15 ML As Ordered ONE (13:08)
[2024-08-10] MEDS: METOCLOPRAMIDE INJ 10MG/2ML VIAL IV PRN (13:14)
[2024-08-10] MEDS: fentaNYL 100 MCG/2 ML INJECTION IV PRN (13:17)
[2024-08-10] MEDS: NORCO, ANEXSIA 5/325MG TABLET (HYDROcodone/ACETAMINOPHEN) PO PRN (13:25)
[2024-08-10 14:15] VITALS: BP 142/75; TEMP 97.4; O2SAT 97
== END 2024-08-10 14:26 | disposition home or self-care (01) ==
LOC: M SDC 08:02
PROVIDERS: ATTEND Otolaryngology
DX: H69.92 Unspecified Eustachian tube disorder, left ear (principal); I10 Essential (primary) hypertension; E78.5 Hyperlipidemia, unspecified; J44.9 Chronic obstructive pulmonary disease, unspecified; R06.02 Shortness of breath; F17.210 Nicotine dependence, cigarettes, uncomplicated; Z88.5 Allergy status to narcotic agent; Z79.899 Other long term (current) drug therapy; Z79.82 Long term (current) use of aspirin
CPT/HCPCS: 69436; 69705; C1726; J0131; J0171; J1100; J2250; J2371; J2405; J2765; J3010

== ENCOUNTER → 2024-08-23 | Outpatient (REF) | payer MEDICARE, MEDICAID ==
[2024-08-23 13:16] LABS: BLOOD UREA NITROGEN 15 MG/DL (9-23); CALCIUM LEVEL 9.5 MG/DL (8.5-10.1); CARBON DIOXIDE LEVEL 30 MMOL/L (20-31); CHLORIDE LEVEL 107 MMOL/L (98-107); CREATININE FOR GFR 0.68 MG/DL (0.70-1.30); GLOMERULAR FILTRATION RATE > 60.0 (>56); GLUCOSE, FASTING 103 MG/DL (60-100); POTASSIUM SERUM 4.2 MMOL/L (3.5-5.1); SODIUM LEVEL 140 MMOL/L (136-145)
== END ==
LOC: M SFHCADAM 08:51
PROVIDERS: ATTEND Physician Assistant
DX: I10 Essential (primary) hypertension (principal); K21.9 Gastro-esophageal reflux disease without esophagitis; I25.84 Coronary atherosclerosis due to calcified coronary lesion; E78.5 Hyperlipidemia, unspecified; K22.70 Barrett's esophagus without dysplasia; F17.218 Nicotine dependence, cigarettes, with other nicotine-induced disorders

== ENCOUNTER 2024-10-09 14:13 | Emergency (ER) | payer MEDICARE, MEDICAID ==
[~2024-10-09] VITALS: Ht 167.6 cm; Wt 79.0 kg
[2024-10-09 14:22] VITALS: TEMP 98.4
[2024-10-09 17:28] VITALS: O2SAT 99
[2024-10-09 17:30] VITALS: BP 148/72
== END 2024-10-09 17:44 | disposition home or self-care (01) ==
LOC: M ED 14:13
DX: R09.81 Nasal congestion (principal); I48.91 Unspecified atrial fibrillation; I10 Essential (primary) hypertension; J44.9 Chronic obstructive pulmonary disease, unspecified; F17.210 Nicotine dependence, cigarettes, uncomplicated; Z88.5 Allergy status to narcotic agent; Z91.09 Other allergy status, other than to drugs and biological substances; Z79.51 Long term (current) use of inhaled steroids; Z79.1 Long term (current) use of non-steroidal anti-inflammatories (NSAID); Z79.899 Other long term (current) drug therapy

== ENCOUNTER 2024-10-26 10:30 | Emergency (ER) | payer MEDICARE, MEDICAID ==
[~2024-10-26] VITALS: Ht 162.6 cm; Wt 79.1 kg
[2024-10-26 11:19] LABS: BASO % 0.5 % (0.0-1.0); EOS % 0.3 % (0.0-3.0); HEMATOCRIT 41.2 % (42.0-52.0); HEMOGLOBIN 14.4 g/dl (13.5-17.5); LYMPH # 2.9 10^3/uL (1.5-5.0); LYMPH % 32.6 % (24.0-44.0); MEAN CORPUSCULAR HEMOGLOBIN 31.8 pg (27.0-33.0); MEAN CORPUSCULAR VOLUME 90.9 fl (80.0-96.0); MONO # 0.6 10^3/uL (0.0-0.8); NEUTROPHILS # 5.2 10^3/uL (1.5-8.5); NEUTROPHILS % 59.3 % (36.0-66.0); PLATELET COUNT, AUTOMATED 230 10^3/uL (150-450); RED BLOOD COUNT 4.53 10^6/uL (4.30-6.10); WHITE BLOOD COUNT 8.8 10^3/uL (4.0-10.0)
[2024-10-26 11:57] LABS: ALKALINE PHOSPHATASE 112 U/L (40-129); ALT/SGPT 33 U/L (7.0-40); AST/SGOT 31 U/L (<34); BILIRUBIN,DIRECT 0.2 MG/DL (<0.4); BILIRUBIN,TOTAL 0.6 MG/DL (0.3-1.2); BLOOD UREA NITROGEN 13 MG/DL (9-23); CALCIUM LEVEL 9.5 MG/DL (8.3-10.6); CARBON DIOXIDE LEVEL 27 MMOL/L (20-31); CHLORIDE LEVEL 101 MMOL/L (98-107); CK-MB VALUE MASS < 1.0 NG/ML (<3.6); CPK CREATINE PHOSPHOKINASE 65 U/L (46-171); CREATININE FOR GFR 0.58 MG/DL (0.70-1.30); FREE T4 1.24 NG/DL (0.89-1.76); GLOMERULAR FILTRATION RATE > 60.0 (>49); GLUCOSE, FASTING 104 MG/DL (74-106); LIPASE 20 U/L (12-53); MB/CK RELATIVE INDEX 1.53 (< OR =4); POTASSIUM SERUM 4.4 MMOL/L (3.5-5.1); SODIUM LEVEL 136 MMOL/L (136-145); THYROID STIMULATING HORMONE 0.984 uIU/ML (0.55-4.78); TOTAL PROTEIN 7.1 G/DL (5.7-8.2)
[2024-10-26 12:29] LABS: CK-MB VALUE MASS < 1.0 NG/ML (<3.6)
[2024-10-26 12:30] LABS: CPK CREATINE PHOSPHOKINASE 48 U/L (46-171); MB/CK RELATIVE INDEX 2.08 (< OR =4)
[2024-10-26] MEDS ORDERED: ISOVUE-370 76% 100ML VIAL As Ordered ONE (12:39)
[2024-10-26 13:52] LABS: KETONE, URINE AUTO RFX NEGATIVE (NEGATIVE); LEUKOCYTE ESTERASE UR AUTO RFX NEGATIVE (NEGATIVE); NITRITE, URINE AUTO RFX NEGATIVE (NEGATIVE); RBC, URINE AUTO RFX 0 /HPF (0-3); SQUAM EPITHELIAL CELL UR AURFX 0 /HPF (0-6); WBC, URINE AUTO RFX 0 /HPF (0-3)
[2024-10-26 14:15] VITALS: TEMP 98.5
[2024-10-26 14:49] LABS: CK-MB VALUE MASS < 1.0 NG/ML (<3.6)
[2024-10-26 14:51] LABS: CPK CREATINE PHOSPHOKINASE 45 U/L (46-171); MB/CK RELATIVE INDEX 2.22 (< OR =4)
[2024-10-26 15:45] VITALS: BP 141/65; O2SAT 97
== END 2024-10-26 16:02 | disposition home or self-care (01) ==
LOC: M ED 10:30
DX: R07.9 Chest pain, unspecified (principal); I45.10 Unspecified right bundle-branch block; I48.91 Unspecified atrial fibrillation; I25.119 Atherosclerotic heart disease of native coronary artery with unspecified angina pectoris; I10 Essential (primary) hypertension; E78.5 Hyperlipidemia, unspecified; F17.210 Nicotine dependence, cigarettes, uncomplicated; Z88.5 Allergy status to narcotic agent; Z91.09 Other allergy status, other than to drugs and biological substances; Z79.51 Long term (current) use of inhaled steroids; Z79.1 Long term (current) use of non-steroidal anti-inflammatories (NSAID); Z79.899 Other long term (current) drug therapy
CPT/HCPCS: 36415; 71045; 71275; 74177; 80047; 80048; 80076; 81001; 82550; 82553; 83605; 83690; 83880; 84439; 84443; 84484; 85025; 87040; 87486; 87581; 87633; 87798; 93005; 93041; 94760; 99285; Q9967

== ENCOUNTER → 2024-11-01 | Outpatient (CLI) | payer MEDICARE, MEDICAID | LOC: M ADAMS 13:41 | PROVIDERS: ATTEND Physician Assistant | DX: M85.88 Other specified disorders of bone density and structure, other site (principal); M47.814 Spondylosis without myelopathy or radiculopathy, thoracic region ==

== ENCOUNTER → 2024-11-29 | Outpatient (REF) | payer MEDICARE, MEDICAID | LOC: M LAB REF 17:04 | PROVIDERS: ATTEND Physician Assistant Medical | DX: J01.90 Acute sinusitis, unspecified (principal) ==

== ENCOUNTER 2024-12-04 15:32 | Emergency (ER) | payer MEDICARE, MEDICAID ==
[~2024-12-04] VITALS: Ht 167.6 cm; Wt 75.9 kg
[2024-12-04] MEDS ORDERED: DOXY-441 (15:51)
[2024-12-04] MEDS ORDERED: MOME50SP2 (15:51)
[2024-12-04 17:01] LABS: VENOUS HCO3 27.4 MMOL/L (23.0-27.0); VENOUS PARTIAL PRESSURE CO2 45.6 mmHg (38.0-50.0); VENOUS PARTIAL PRESSURE O2 33.7 mmHg (30.0-50.0); VENOUS PH 7.397 UNITS (7.330-7.430); VENOUS STANDARD HCO3 25.4 MMOL/L; VENOUS TOTAL CO2 28.8 MMOL/L (24.0-28.0)
[2024-12-04 17:04] LABS: BASO % 0.2 % (0.0-1.0); EOS % 0.1 % (0.0-3.0); HEMATOCRIT 39.9 % (42.0-52.0); HEMOGLOBIN 13.7 g/dl (13.5-17.5); LYMPH # 3.9 10^3/uL (1.5-5.0); LYMPH % 23.9 % (24.0-44.0); MEAN CORPUSCULAR HEMOGLOBIN 31.4 pg (27.0-33.0); MEAN CORPUSCULAR HGB CONC 34.3 g/dl (32.0-36.5); MEAN CORPUSCULAR VOLUME 91.5 fl (80.0-96.0); NEUTROPHILS # 11.4 10^3/uL (1.5-8.5); NEUTROPHILS % 69.5 % (36.0-66.0); PLATELET COUNT, AUTOMATED 236 10^3/uL (150-450); RED BLOOD COUNT 4.36 10^6/uL (4.30-6.10); WHITE BLOOD COUNT 16.4 10^3/uL (4.0-10.0)
[2024-12-04 17:37] LABS: ALKALINE PHOSPHATASE 125 U/L (40-129); ALT/SGPT 30 U/L (7.0-40); AST/SGOT 22 U/L (<34); BILIRUBIN,DIRECT 0.2 MG/DL (<0.4); BILIRUBIN,TOTAL 0.5 MG/DL (0.3-1.2); BLOOD UREA NITROGEN 11 MG/DL (9-23); CALCIUM LEVEL 9.3 MG/DL (8.3-10.6); CARBON DIOXIDE LEVEL 28 MMOL/L (20-31); CHLORIDE LEVEL 102 MMOL/L (98-107); CK-MB VALUE MASS < 1.0 NG/ML (<3.6); CREATININE FOR GFR 0.67 MG/DL (0.70-1.30); GLOMERULAR FILTRATION RATE > 90.0 (>49); GLUCOSE, FASTING 96 MG/DL (74-106); POTASSIUM SERUM 3.5 MMOL/L (3.5-5.1); SODIUM LEVEL 138 MMOL/L (136-145); THYROID STIMULATING HORMONE 1.084 uIU/ML (0.55-4.78); THYROXINE (T4) 8.5 UG/DL (4.5-10.9); TOTAL PROTEIN 6.8 G/DL (5.7-8.2)
[2024-12-04 17:38] LABS: CPK CREATINE PHOSPHOKINASE 81 U/L (46-171); MB/CK RELATIVE INDEX 1.23 (< OR =4)
[2024-12-04 18:19] LABS: KETONE, URINE AUTO RFX NEGATIVE (NEGATIVE); LEUKOCYTE ESTERASE UR AUTO RFX NEGATIVE (NEGATIVE); NITRITE, URINE AUTO RFX NEGATIVE (NEGATIVE); RBC, URINE AUTO RFX 0 /HPF (0-3); SQUAM EPITHELIAL CELL UR AURFX 0 /HPF (0-6); WBC, URINE AUTO RFX 1 /HPF (0-3)
[2024-12-04] MEDS ORDERED: ISOVUE-370 76% 100ML VIAL As Ordered ONE (19:20)
[2024-12-04] MEDS ORDERED: SIME1CAP4 PO (20:24)
[2024-12-04] MEDS ORDERED: CEFP200T PO (20:24)
[2024-12-04 20:30] VITALS: BP 139/74; TEMP 97.3; O2SAT 97
== END 2024-12-04 20:32 | disposition home or self-care (01) ==
LOC: M ED 15:32
DX: Q40.1 Congenital hiatus hernia (principal); J01.90 Acute sinusitis, unspecified; R94.31 Abnormal electrocardiogram [ECG] [EKG]; I10 Essential (primary) hypertension; E78.5 Hyperlipidemia, unspecified; J44.9 Chronic obstructive pulmonary disease, unspecified; K21.9 Gastro-esophageal reflux disease without esophagitis; F41.9 Anxiety disorder, unspecified; Z88.5 Allergy status to narcotic agent; Z91.09 Other allergy status, other than to drugs and biological substances; Z79.1 Long term (current) use of non-steroidal anti-inflammatories (NSAID); Z79.51 Long term (current) use of inhaled steroids; Z79.899 Other long term (current) drug therapy
CPT/HCPCS: 36415; 71045; 74177; 80048; 80076; 81001; 82550; 82553; 82803; 84436; 84443; 84484; 85025; 87486; 87581; 87633; 87798; 93005; 93041; 94760; 99285; Q9967

== ENCOUNTER 2024-12-13 13:07 | Emergency (ER) | payer MEDICARE, MEDICAID ==
[~2024-12-13] VITALS: Ht 167.6 cm; Wt 78.2 kg
[~2024-12-13 13:07] MED LIST changes: +CEFP200T PO; +DOXY-441; +MOME50SP2; +SIME1CAP4 PO
[2024-12-13 13:19] VITALS: TEMP 98.4
[2024-12-13 14:30] VITALS: BP 155/74
[2024-12-13 15:00] VITALS: O2SAT 98
== END 2024-12-13 15:20 | disposition home or self-care (01) ==
LOC: M ED 13:07 → EDBD 13:07 → M ED 15:20
DX: J32.9 Chronic sinusitis, unspecified (principal); I10 Essential (primary) hypertension; K21.9 Gastro-esophageal reflux disease without esophagitis; J44.9 Chronic obstructive pulmonary disease, unspecified; F17.210 Nicotine dependence, cigarettes, uncomplicated; Z88.5 Allergy status to narcotic agent; Z91.09 Other allergy status, other than to drugs and biological substances; Z79.1 Long term (current) use of non-steroidal anti-inflammatories (NSAID); Z79.51 Long term (current) use of inhaled steroids; Z79.899 Other long term (current) drug therapy

== ENCOUNTER → 2025-03-05 | Outpatient (REF) | payer MEDICARE, MEDICAID ==
[2025-03-05 14:09] LABS: PLATELET COUNT, AUTOMATED 239 10^3/uL (150-450)
[2025-03-05 14:35] LABS: ESTIMATED AVERAGE GLUCOSE 117.0 MG/DL (60-110); PSA SCREENING 1.00 NG/ML (< 4.00)
[2025-03-05 14:37] LABS: ALT/SGPT 24 U/L (7.0-40); AST/SGOT 19 U/L (<34); CALCIUM LEVEL 9.5 MG/DL (8.3-10.6); CARBON DIOXIDE LEVEL 28 MMOL/L (20-31); CHLORIDE LEVEL 102 MMOL/L (98-107); CHOLESTEROL LEVEL 119 MG/DL (<200); CHOLESTEROL RISK RATIO 2.98 (<5); CREATININE FOR GFR 0.80 MG/DL (0.70-1.30); GLOMERULAR FILTRATION RATE > 90.0 (>49); LDL CHOLESTEROL 63.6 MG/DL (<100); NON-HDL-C 79.2 MG/DL; POTASSIUM SERUM 4.5 MMOL/L (3.5-5.1); SODIUM LEVEL 140 MMOL/L (136-145); TRIGLYCERIDES LEVEL 78 MG/DL (<150)
[2025-03-05 14:38] LABS: FREE T4 1.32 NG/DL (0.89-1.76)
== END ==
LOC: M SFHCADAM 08:07
PROVIDERS: ATTEND Physician Assistant
DX: J44.9 Chronic obstructive pulmonary disease, unspecified (principal); Z12.5 Encounter for screening for malignant neoplasm of prostate; F17.218 Nicotine dependence, cigarettes, with other nicotine-induced disorders; K21.9 Gastro-esophageal reflux disease without esophagitis; E78.5 Hyperlipidemia, unspecified; I10 Essential (primary) hypertension; I25.10 Atherosclerotic heart disease of native coronary artery without angina pectoris; Z28.21 Immunization not carried out because of patient refusal; Z79.899 Other long term (current) drug therapy
CPT/HCPCS: 80053; 80061; 83036; 84439; 84443; 85027; G0103